=== PATIENT | female | born 1980 | race Caucasian/White ===

== ENCOUNTER 2019-11-13 02:20 | Inpatient (IN) | payer SELFPAY ==
[2019-11-13] VITALS (7 sets, daily range): BP systolic 136–146; BP diastolic 89–100
[~2019-11-13] VITALS: Ht 160 cm; Wt 106.1 kg
--- NOTE | 2019-11-13 02:00 | NUR ---
Admit to 434, direct admit from [place]. C/o abd pain with N/V. A&O, ambulates w/o difficulty. Has non-prod cough, afebrile.
[~2019-11-13 02:20] MED LIST: ACET325T9 PO; CIME200T8 PO; MELO7.5T29 PO; inhaler
[2019-11-13] MEDS: IV NORMAL SALINE 1000ML BAG 1,000 ML IV SCH ×3 (03:19→23:18)
[2019-11-13] MEDS: ONDANSETRON PF 4 MG/2 ML VIAL. IVP PRN ×3 (03:20→18:09)
[2019-11-13] MEDS: MORPHINE SULFATE 4 MG/ML VIAL. IV PRN ×6 (03:20→23:18)
--- NOTE | 2019-11-13 07:00 | NUR ---
awake complaining of nausea and emesis; bile. up to the bathroom and voided 300 cc yellow urine. steady gait. she is painful in the upper quadrants and is tender to touch. it is too early for pain medication or nausea medication
--- NOTE | 2019-11-13 08:51 | PDOC2 ---
CONSULT Date of Consult Date of Consult DATE: 11/13/19 TIME: 08:45 Reason for Consult Reason for Consult: cholecystitis Referring Physician Referring Physician: Dr Wells Identification/Chief Complaint Chief Complaint abdominal pain Source Source: Chart review, Patient History of Present Illness Reason for Visit: Acute onset of upper abdominal pain started yesterday. Associated nausea and emesis. No similar symptoms in past. No constipation or diarrhea Past Medical History Cardiovascular: No pertinent hx Past Surgical History Past Surgical History: Other (myomectomy ) Family History Family History: Hypertension Social History 1 pack per day ALCOHOL: rare Drugs: Marijuana Lives: with Family Current Medications Current Medications Current Medications Morphine Sulfate (Morphine Sulfate) 4 mg PRN Q4HRS PRN IV PAIN Last administered on 11/13/19at 07:40; Start 11/13/19 at 03:00 Ondansetron HCl (Zofran) 4 mg PRN Q6HRS PRN IVP NAUSEA/VOMITING Last administered on 11/13/19at 08:43; Start 11/13/19 at 03:00 Sodium Chloride 1,000 ml @ 100 mls/hr Q10H IV Last administered on 11/13/19at 03:19; Start 11/13/19 at 03:00 Active Scripts Active Reported [inhaler] Tylenol (Acetaminophen) 325 Mg Tablet 1-2 Tab PO QID Acid Icu Specialist (Cimetidine) 200 Mg Tablet 200 Mg PO Meloxicam 7.5 Mg Tablet 7.5 Mg PO DAILY Allergies Allergies: Coded Allergies: No Known Drug Allergies (Unverified , 07/31/14) ROS General: No: Chills, Other (fevers ) PSYCHOLOGICAL ROS: No: Anxiety, Depression Eyes: No Blurry vision, No Double vision HEENT: No: Heacaches, Sore Throat Hematological and Lymphatic: No: Bleeding Problems, Blood Clots Respiratory: YES: Cough; No: Shortness of breath Cardiovascular: No Chest Pain, No Palpitations Gastrointestinal: Yes Other (see hpi) Genitourinary: No Dysuria, No Hematuria Musculoskeletal: No Joint Pain, No Muscle Pain Neurological: No Impaired Coord/balance, No Numbness/Tingling Skin: No Pruritus, No Rash Physical Exam General: Alert, Cooperative, Other (in pain ) HEENT: Atraumatic, PERRLA Lungs: Clear to auscultation, Normal air movement Heart: Regular rate, Normal S1, Normal S2 Abdomen: Soft, Other (TTP upper abdomen ) Extremities: No clubbing, No cyanosis Skin: No rashes, No breakdown Neuro: Normal gait, Normal speech Psych/Mental Status: Mental status NL, Mood NL MUSCULOSKELETAL: No deformity, No swelling Vitals VITALS Vital Signs Date Time Temp Pulse Resp B/P (MAP) Pulse Ox O2 Delivery O2 Flow Rate FiO2 11/13/19 07:40 18 Room Air 11/13/19 07:15 98.2 103 142/89 (106) 97 98.2 Assessment/Plan Assessment/Plan cholecystitis-added abx noted adnexal masses-required myomectomy in 2014 will need tristin, await BANK OPERATIONS OFFICER if adnexal masses require any intervention ADRY KOHLER BLOW PIT OPERATOR Nov 13, 2019 08:51
--- NOTE | 2019-11-13 10:06 | NUR ---
SW following. Discussed with RN, room air, NPO, COVID pending for possible surgery. SW will continue to follow.
[2019-11-13] MEDS: PIPERACILLIN/TAZOBACTAM 3.375 GM in IV NORMAL SALINE 50ML 50 ML IV SCH ×2 (10:17→18:07)
--- NOTE | 2019-11-13 10:25 | PDOC2 ---
CONSULT Date of Consult Date of Consult DATE: 11/13/19 TIME: 10:24 Reason for Consult Reason for Consult: Pelvic mass, abd pain History of Present Illness Reason for Visit: The pt is a 39y G0 who presented to [facility] with N/V, and abd pain. She states that the pain began suddenly on Sunday. She presented to the ER where a CT was performed revealin. Cholelithiasis. 2. Bilateral adnexal masses are seen, right greater than left. The right adnexal mass measures 11 cm in greatest diameter. On the previous examination the patient had a 16.6 cm left adnexal mass. It is unclear on today's study whether these adnexal masses have decreased in size due to treatment or are new. Clinical correlation is recommended. They reported that the pt had bilateral adnexal masses (11 cm on the right and 6.4 cm on the left). The pt was transferred to [place] for eval and management. In 2014 (07/30/14) the pt presented to [facility] ER with abd pain and was found to have a 19 x 20 x 11 cm solid mass. The pt was transferred to [place] and underwent surgery. The surgery revealed that the mass was pedunculated fibroids (largest 25 cm). The pt underwent an open myomectomy. Due to insurance issues the pt has never followed up. The pt was informed that the masses this time were lickly fibroids again, but additional imaging may help to confirm this. Briefly discussed tx options with the pt regarding fibroids. Expectant vs myomectomy vs hysterectomy. The pt has no children and has no desire for any in the future. If she did need to have surgery for the fibroids she would prefer just the myomectomy. The pt has no PCP. She used to see Dr. Hatch. He was the physician managing her asthma. But after she lost her insurance she has not seen anyone. PMH: Gastritis, bronchial asthma PSH: Ex Lap at 15yo for abd pain (no etiology found), Open myomectomy Meds: Albuterol inhaler, Ompreazole All: Tramadol OBHx: G0 Scarfer: LMP ~2wks Never contraception 13yo / regular SH: rare tob, rare EtOH FH: aunt Breast CA; great uncle colon CA; uncle x 2, aunt and GM DM; uncle nonhodgkins lymphoma Past Medical History Cardiovascular: No pertinent hx Past Surgical History Past Surgical History: Other (myomectomy ) Family History Family History: Hypertension Social History 1 pack per day ALCOHOL: rare Drugs: Marijuana Lives: with Family Current Medications Current Medications Current Medications Morphine Sulfate (Morphine Sulfate) 4 mg PRN Q4HRS PRN IV PAIN Last administered on 11/13/19at 10:17; Start 11/13/19 at 03:00 Ondansetron HCl (Zofran) 4 mg PRN Q6HRS PRN IVP NAUSEA/VOMITING Last administered on 11/13/19at 08:43; Start 11/13/19 at 03:00 Sodium Chloride 1,000 ml @ 100 mls/hr Q10H IV Last administered on 11/13/19at 03:19; Start 11/13/19 at 03:00 Piperacillin Sod/ Tazobactam Sod 3.375 gm/Sodium Chloride 50 ml @ 100 mls/hr Q6HRS IV Last administered on 11/13/19at 10:17; Start 11/13/19 at 09:30 Active Scripts Active Reported [inhaler] Tylenol (Acetaminophen) 325 Mg Tablet 1-2 Tab PO QID Acid Tower Climber (Cimetidine) 200 Mg Tablet 200 Mg PO Meloxicam 7.5 Mg Tablet 7.5 Mg PO DAILY Allergies Allergies: Coded Allergies: No Known Drug Allergies (Unverified , 07/31/14) Physical Exam General: Alert, Oriented X3, Cooperative, No acute distress HEENT: PERRLA, Mucous membr. moist/pink Lungs: Clear to auscultation, Normal air movement Heart: Regular rate, Normal S1, Normal S2, No murmurs Abdomen: Soft, Other (diffusely tender) Extremities: No clubbing, No cyanosis, No edema, Normal pulses, No tenderness/swelling Skin: No rashes, No breakdown Neuro: Normal gait, Normal speech, Normal tone, Sensation intact, Reflexes 2+ Psych/Mental Status: Mental status NL, Mood NL Vitals VITALS Vital Signs Date Time Temp Pulse Resp B/P (MAP) Pulse Ox O2 Delivery O2 Flow Rate FiO2 11/13/19 10:17 20 Room Air 11/13/19 07:15 98.2 103 142/89 (106) 97 98.2 Labs Labs Laboratory Tests Test 11/13/19 09:50 SARS-CoV-2 Antigen (Rapid) Negative (NEGATIVE) Laboratory Tests Test 11/13/19 09:50 SARS-CoV-2 Antigen (Rapid) Negative (NEGATIVE) Assessment/Plan Assessment/Plan Assessment: 39y G0 wit N/V/abd pain likely from Cholelithiasis Recommendations: 1.) Pelvic masses bilateral adnexal masses measuring 11 cm (on right) and 6.4 cm (on the left), h/o myomectomy in 2015. Masses are likely fibroids like in the past. Would recommend obtaining u/s to help delineate what the masses are. Would also obtain CA 125. Since this is likely fibroids, this w/u should not delay cholecystectomy if indicated or determine method of how it is performed (laparoscopically or open). Due to the size of the masses a myomectomy may need to be open. Fibroids have been asx for some time so not necessary that they be taken out, but can be done at the same time as Vikki. 2.) Cholelithiasis on imaging, WBC 13.1, managed per surgery 3.) Contraception none 4.) H/o open myomectomy 5.) Gastritis long standing hx 6.) Asthma 7.) Will cont follow, please inform if and when pt is placed on schedule of AMENA Griggs MD Nov 13, 2019 10:25
--- NOTE | 2019-11-13 10:30 | NUR ---
rapid co-vid family at bedside d completed. Nely from surgery services has been here.
--- NOTE | 2019-11-13 12:16 | PDOC2 ---
GI CONSULT Date of Service: DATE: 11/13/19 TIME: 12:08 Reason For Consult: impacted gallstone HPI: HPI: 39 y/o female sent from [facility]. Acute onset of "knot" epigastric pain w/ vomiting yesterday while at work. She is a cook at [employer]. No similar pain in the past. H/o "gastritis" diagnosed by PCP - takes omeprazole. No dysphagia, hematemesis, diarrhea, constipation, hematochezia, melena, or weight loss. EGD and colonoscopy in her teenage years - recalls no significant findings. No GB, liver, pancreas, or PUD history. Daily NSAID and Tylenol. Normal LFTs and lipase and [facility]. CT w/ cholelithiasis and bilateral adnexal masses. PMH: PMH: open myomectomy FH: Family History: Cancer (great uncle - colon, other relatives - prostate, NHL, breast) Social History: Smoke: <1 pack per day ALCOHOL: occassional Drugs: Marijuana ROS: GEN: Denies fevers, chills, sweats HEENT: Denies blurred vision, sore throat CV: Denies chest pain RESP: Denies shortness of air, cough GI: Per HPI : Denies hematuria, dysuria ENDO: Denies weight changes NEURO: Denies confusion, dizziness MSK: Denies weakness, joint pain/swelling SKIN: Denies jaundice, pruritus Vitals: Vitals: Vital Signs Date Time Temp Pulse Resp B/P (MAP) Pulse Ox O2 Delivery O2 Flow Rate FiO2 11/13/19 11:05 98.3 102 22 146/100 (115) 98 Room Air 98.3 Labs: Labs: Laboratory Tests Test 11/13/19 09:50 SARS-CoV-2 Antigen (Rapid) Negative (NEGATIVE) Allergies: Coded Allergies: No Known Drug Allergies (Unverified , 07/31/14) Medications: Current Medications Medications (Trade) Dose Ordered Sig/Leonel Route PRN Reason Start Time Stop Time Status Last Admin Dose Admin Morphine Sulfate (Morphine Sulfate) 4 mg PRN Q4HRS PRN IV PAIN 11/13/19 03:00 11/13/19 10:17 Ondansetron HCl (Zofran) 4 mg PRN Q6HRS PRN IVP NAUSEA/VOMITING 11/13/19 03:00 11/13/19 08:43 Sodium Chloride 1,000 ml @ 100 mls/hr Q10H IV 11/13/19 03:00 11/13/19 03:19 Piperacillin Sod/ Tazobactam Sod 3.375 gm/Sodium Chloride 50 ml @ 100 mls/hr Q6HRS IV 11/13/19 09:30 11/13/19 10:17 PE: GEN: uncomfortable HEENT: Atraumatic, PERRL LUNGS: CTAB HEART: mildly tachycardic ABD: quiet, quiet tender to light touch upper abdomen EXTREMITY: No edema SKIN: No rashes, no jaundice NEURO/PSYCH: A & O 3 A/P: A/P: Epigastric pain, vomiting Cholelithiasis, adnexal masses GERD - on PPI CRC screen - average risk NSAID use Rapid COVID negative -- Continue per surgery and VP CARDIOVASCULAR. Nurse ask for Compazine - gave ok. Would resume acid-tar pot man as well. ZAIRA MCKEON Nov 13, 2019 12:16
[2019-11-13] MEDS: PROCHLORPERAZINE 10 MG/2 ML VIAL. IV PRN ×2 (12:45→20:39)
[2019-11-13] MEDS: PANTOPRAZOLE IV PUSH 40 MG VIAL. IVP SCH (13:38)
--- NOTE | 2019-11-13 16:11 | PDOC1 ---
History and Physical Date of Admission Date of Admission DATE: 11/13/19 TIME: 16:01 Identification/Chief Complaint Chief Complaint Abdominal pain Source Source: Patient History of Present Illness History of Present Illness Patient is a 39-year-old female with past medical history of uterine fibroids, who presents to the ED with complaint of cramping upper abdominal pain that began suddenly on the day of admission. Patient reports 10/10 pain, with associated nausea and vomiting. She denies any alleviating factors. After administration of pain medication patient currently rated with her pain at 6/10. She denies any fever, shortness of breath, diarrhea. Past Medical History Cardiovascular: No pertinent hx Pulmonary: Asthma Endocrine: Other (Uterine fibroids) Past Surgical History Past Surgical History: Other (myomectomy ) Family History Family History: Diabetes, Hypertension Social History Smoke: <1 pack per day ALCOHOL: occassional Drugs: Marijuana Current Medications Current Medications Current Medications Morphine Sulfate (Morphine Sulfate) 4 mg PRN Q4HRS PRN IV PAIN Last administered on 11/13/19at 14:34; Start 11/13/19 at 03:00 Ondansetron HCl (Zofran) 4 mg PRN Q6HRS PRN IVP NAUSEA/VOMITING Last administered on 11/13/19at 08:43; Start 11/13/19 at 03:00 Sodium Chloride 1,000 ml @ 100 mls/hr Q10H IV Last administered on 11/13/19at 12:52; Start 11/13/19 at 03:00 Piperacillin Sod/ Tazobactam Sod 3.375 gm/Sodium Chloride 50 ml @ 100 mls/hr Q6HRS IV Last administered on 11/13/19at 10:17; Start 11/13/19 at 09:30 Prochlorperazine Edisylate (Compazine) 10 mg PRN Q6HRS PRN IV NAUSEA/VOMITING- 2ND CHOICE Last administered on 11/13/19 12:45; Start 11/13/19 at 12:30 Pantoprazole Sodium (PROTONIX VIAL for IV PUSH) 40 mg DAILYAC IVP Last administered on 11/13/19at 13:38; Start 11/13/19 at 13:30 Active Scripts Active Reported [inhaler] Tylenol (Acetaminophen) 325 Mg Tablet 1-2 Tab PO QID Acid Netbackup Engineer (Cimetidine) 200 Mg Tablet 200 Mg PO Meloxicam 7.5 Mg Tablet 7.5 Mg PO DAILY Allergies Allergies: Coded Allergies: No Known Drug Allergies (Unverified , 07/31/14) ROS General: No: Chills, Night Sweats, Fatigue, Malaise, Appetite, Other PSYCHOLOGICAL ROS: No: Anxiety, Behavioral Disorder, Concentration difficultie, Decreased libido, Depression, Disorientation, Hallucinations, Hostility, Irritablity, Memory difficulties, Mood Swings, Obsessive thoughts, Physical abuse, Sexual abuse, Sleep disturbances, Suicidal ideation, Other Eyes: No Blurry vision, No Decreased vision, No Double vision, No Dry eyes, No Excessive tearing, No Eye Pain, No Itchy Eyes, No Loss of vision, No Photophobia , No Scotomata, No Uses contacts, No Uses glasses, No Other HEENT: No: Heacaches, Visual Changes, Hearing change, Nasal congestion, Nasal discharge, Oral lesions, Sinus pain, Sore Throat, Epistaxis, Sneezing, Snoring, Tinnitus, Vertigo, Vocal changes, Other ALLERGY AND IMMUNOLOGY: No: Hives, Insect Bite Sensitivity, Itchy/Watery Eyes, Nasal Congestion, Post Nasal Drip, Seasonal Allergies, Other Hematological and Lymphatic: No: Bleeding Problems, Blood Clots, Blood Transfusions, Brusing, Night Sweats, Pallor, Swollen Lymph Nodes, Other ENDOCRINE: No: Breast Changes, Galactorrhea, Hair Pattern Changes, Hot Flashes, Malaise/lethargy, Mood Swings, Palpitations, Polydipsia/polyuria, Skin Changes, Temperature Intolerance, Unexpected Weight Changes, Other Respiratory: No: Cough, Hemoptysis, Orthopnea, Pleuritic Pain, Shortness of breath, SOB with excertion, Sputum Changes, Stridor, Tachypnea, Wheezing, Other Cardiovascular: No Chest Pain, No Palpitations, No Orthopnea, No Paroxysmal Noc. Dyspnea, No Edema, No Lt Headedness, No Other Gastrointestinal: Yes Abdominal Pain; No Nausea, No Vomiting Genitourinary: No Dysuria, No Frequency, No Incontinence, No Hematuria, No Retention, No Discharge, No Urgency, No Pain, No Flank Pain, No Other, No , No , No , No , No , No , No Musculoskeletal: No Gait Disturbance, No Joint Pain, No Joint Stiffness, No Joint Swelling, No Muscle Pain, No Muscular Weakness, No Pain In:, No Swelling In:, No Other Neurological: No Behavorial Changes, No Bowel/Bladder ControlChng, No Confusion, No Dizziness, No Gait Disturbance, No Headaches, No Impaired Coord/balance, No Memory Loss, No Numbness/Tingling, No Seizures, No Speech Problems, No Tremors, No Visual Changes, No Weakness, No Other Skin: No Dry Skin, No Eczema, No Hair Changes, No Lumps, No Mole Changes, No Mottling, No Nail Changes, No Pruritus, No Rash, No Skin Lesion Changes, No Other, No Acne Physical Exam General: Alert, Oriented X3, Cooperative, No acute distress HEENT: PERRLA Lungs: Clear to auscultation, Normal air movement Heart: RRR, no murmurs Cardiovascular: S1, S2 Abdomen: Other (Epigastric and right upper quadrant tenderness, palpable uterine fibroids) Extremities: No clubbing, No cyanosis, No edema, Normal pulses, No tenderness/swelling Skin: No rashes, No breakdown, No significant lesion Neuro: Normal gait, Normal speech, Strength at 5/5 X4 ext, Normal tone, Sensation intact, Cranial nerves 3-12 NL, Reflexes 2+ Psych/Mental Status: Mental status NL, Mood NL Vitals Vitals Vital Signs Date Time Temp Pulse Resp B/P (MAP) Pulse Ox O2 Delivery O2 Flow Rate FiO2 11/13/19 15:03 98.6 89 20 139/91 (107) 98 Room Air 98.6 Labs Labs Laboratory Tests Test 11/13/19 09:50 SARS-CoV-2 Antigen (Rapid) Negative (NEGATIVE) Laboratory Tests Test 11/13/19 09:50 SARS-CoV-2 Antigen (Rapid) Negative (NEGATIVE) VTE Prophylaxis Ordered VTE Prophylaxis Devices: No VTE Pharmacological Prophylaxi: No Assessment/Plan Assessment/Plan 1) cholecystitis 2) uterine fibroids Patient is a transfer from [facility], where outside CT showed cholelithiasis, and incidental findings of bilateral adnexal masses, right great er than left. Consults were placed to general surgery, GI, PLAYERS CLUB REPRESENTATIVE. Patient to have cholecystectomy likely tomorrow, and uterine fibroid management per PLAYERS CLUB REPRESENTATIVE. VTE prophylaxis. Full code. Justicifation of Admission Dx: Justifications for Admission: Justification of Admission Dx: Yes Comments: Intractable pain WALESKA ATKINS MD Nov 13, 2019 16:11
[2019-11-14] VITALS (9 sets, daily range): BP systolic 119–150; BP diastolic 76–92
[2019-11-14] MEDS: ONDANSETRON PF 4 MG/2 ML VIAL. IVP PRN ×2 (00:09→09:40)
[2019-11-14] MEDS: PIPERACILLIN/TAZOBACTAM 3.375 GM in IV NORMAL SALINE 50ML 50 ML IV SCH ×4 (00:12→19:16)
[2019-11-14] MEDS: MORPHINE SULFATE 4 MG/ML VIAL. IV PRN ×3 (05:04→13:50)
[2019-11-14] MEDS: PROCHLORPERAZINE 10 MG/2 ML VIAL. IV PRN ×2 (05:07→11:55)
[2019-11-14] MEDS: PANTOPRAZOLE IV PUSH 40 MG VIAL. IVP SCH (08:27)
--- NOTE | 2019-11-14 09:00 | NUR ---
resting in bed. remains NPO. has not had any emesis since yesterday but she has been given compazine and Zofran every 6 hrs. have not heard about surgery yet. family at bedside
[2019-11-14] MEDS: IV NORMAL SALINE 1000ML BAG 1,000 ML IV SCH ×2 (09:40→21:30)
--- NOTE | 2019-11-14 09:51 | NUR ---
SW following. Discussed with RN, pt from home, room air, NPO, COVID-19 negative. Possible surgery. Med Assist following for self pay status. SW will continue to follow.
--- NOTE | 2019-11-14 10:06 | PDOC ---
Date of Service: DATE: 11/14/19 TIME: 10:04 Subjective: Subjective: No vomiting - has been NPO. Pain is a little better. Objective: Vital Signs: Vital Signs Date Time Temp Pulse Resp B/P (MAP) Pulse Ox O2 Delivery O2 Flow Rate FiO2 11/14/19 09:40 20 Room Air 11/14/19 07:15 98.5 94 138/84 (102) 93 98.5 Imaging: Pelv US pending PE: GEN: NAD LUNGS: CTAB HEART: RRR ABD: quiet, less tender epigastrium NEURO/PSYCH: A & O 3 A/P: Cholelithiasis, adnexal masses GERD - on PPI COVID negative -- Continue per surgery and PROFESSIONAL MODEL. LFTs normal @ [facility] - labs pending this morning. Justicifation of Admission Dx: Justifications for Admission: Justification of Admission Dx: Yes ZAIRA MCKEON Nov 14, 2019 10:06
[2019-11-14 10:21] LABS: ALBUMIN 2.9 g/dL (3.4-5.0); DIRECT BILIRUBIN 0.3 mg/dL (0.0-0.2); TOTAL BILIRUBIN 0.6 mg/dL (0.2-1.0); TOTAL PROTEIN 6.5 g/dL (6.4-8.2)
--- NOTE | 2019-11-14 11:19 | PDOC ---
SPIRAL RUNNER PROGRESS NOTE Date of Service: DATE: 11/14/19 TIME: 11:18 Subjective: NPO last night. Still in pain Objective: Vital Signs: Vital Signs Date Time Temp Pulse Resp B/P (MAP) Pulse Ox O2 Delivery O2 Flow Rate FiO2 11/13/19 07:15 98.2 103 20 142/89 (106) 97 Room Air 98.2 Vital Signs Date Time Temp Pulse Resp B/P (MAP) Pulse Ox O2 Delivery O2 Flow Rate FiO2 11/14/19 09:40 20 Room Air 11/14/19 07:15 98.5 94 138/84 (102) 93 98.5 Labs: Laboratory Tests Test 11/14/19 09:20 Total Bilirubin 0.6 mg/dL (0.2-1.0) Direct Bilirubin 0.3 mg/dL (0.0-0.2) H Aspartate Amino Transferase (AST) 20 U/L (15-37) Alanine Aminotransferase (ALT) 30 U/L (14-59) Alkaline Phosphatase 67 U/L (46-116) Total Protein 6.5 g/dL (6.4-8.2) Albumin 2.9 g/dL (3.4-5.0) L Physical Exam: GENERAL: No apparent distress. Alert and oriented. HEENT: Head normocephalic, atraumatic. NECK: Supple LUNGS: Clear to auscultation. HEART: RRR, S1, S2 present, pulses intact ABDOMEN: Soft, positive bowel sounds. EXTREMITIES: No cyanosis or edema. NEUROLOGIC: Normal speech, normal tone PSYCHIATRIC: Normal affect, normal mood. SKIN: No ulceration. Assessment & Plan: A/P 39y G0 wit N/V/abd pain likely from Cholelithiasis 1.) Pelvic masses bilateral adnexal masses measuring 11 cm (on right) and 6.4 cm (on the left), h/o myomectomy in 2014. Awaiting u/s read and CA 125 results. Pt may go to the OR this afternoon. If not significant adhesions, pt would like fibroids removed even if the procedure would need to convert to open. 2.) Cholelithiasis possible to OR this afternoon 3.) Contraception none 4.) H/o open myomectomy 5.) Gastritis long standing hx 6.) Asthma 7.) Will cont follow, please inform if and when pt is placed on schedule of AMENA Griggs MD Nov 14, 2019 11:19
--- NOTE | 2019-11-14 12:33 | PDOC ---
EDITAADRY Debra INSTALLER HELPER 11/14/19 1233: SURGICAL PROGRESS NOTE DATE: 11/14/19 TIME: 12:32 Subjective still with upper abdominal pain no emesis Vital Signs Vital Signs Date Time Temp Pulse Resp B/P (MAP) Pulse Ox O2 Delivery O2 Flow Rate FiO2 11/14/19 11:15 97.9 109 18 143/87 (105) 96 Room Air 97.9 I&O Intake and Output 11/14/19 06:59 Intake Total 1650 ml Balance 1650 ml Intake Oral 0 ml IV Total 1650 ml # Voids 3 General: Alert, Oriented X3, Cooperative Abdomen: Soft, Other (ND, ttp upper abdomen ) Labs Laboratory Tests Test 11/13/19 09:00 11/13/19 09:50 11/14/19 09:20 Coronavirus (PCR) Not detected (Not Detected) SARS-CoV-2 Antigen (Rapid) Negative (NEGATIVE) Total Bilirubin 0.6 mg/dL (0.2-1.0) Direct Bilirubin 0.3 mg/dL (0.0-0.2) Aspartate Amino Transf (AST/SGOT) 20 U/L (15-37) Alanine Aminotransferase (ALT/SGPT) 30 U/L (14-59) Alkaline Phosphatase 67 U/L (46-116) Total Protein 6.5 g/dL (6.4-8.2) Albumin 2.9 g/dL (3.4-5.0) Laboratory Tests Test 11/14/19 09:20 Total Bilirubin 0.6 mg/dL (0.2-1.0) Direct Bilirubin 0.3 mg/dL (0.0-0.2) Aspartate Amino Transf (AST/SGOT) 20 U/L (15-37) Alanine Aminotransferase (ALT/SGPT) 30 U/L (14-59) Alkaline Phosphatase 67 U/L (46-116) Total Protein 6.5 g/dL (6.4-8.2) Albumin 2.9 g/dL (3.4-5.0) Problem List plan for lap tristin today will let Dr Maria know of scheduling Justicifation of Admission Dx: Justifications for Admission: Justification of Admission Dx: Yes IVAN RENE MD 11/14/19 1912: SURGICAL PROGRESS NOTE Assessment/Plan Pt seen and examined in preop Agree with Ms. Kohler's note Pt with gallstone in neck of gallbladder Some improvement since admission. TO OR for laparoscopic versus open cholecystectomy with cholangiogram R/R/B/A d/w pt and pt's supportive family. Risks, including, but not limited to: bleeding, infection, damage to surrounding structures, risk of anesthesia, risk of open. They appear to understand, their questions are answered and they elect to proceed. ADRY KOHLER APRN Nov 14, 2019 12:33 IVAN RENE MD Nov 14, 2019 19:12
--- NOTE | 2019-11-14 14:00 | NUR ---
consents for surgery hiv, blood and anesthesia obtained. urine for sent to lab. family remains at bedside. she is agreeable to surgery. message left with Dr. Maria about her going to surgery.
--- NOTE | 2019-11-14 14:13 | RAD ---
EXAM: Pelvic ultrasound HISTORY: Adnexal mass. Prior resection of large uterine fibroids. COMPARISON: 11/12/2019 CT, 07/30/2014. FINDINGS: Sonographic evaluation of the pelvis was performed transabdominally. The uterus is anteverted and measures 8.2 x 7.3 x 4.0 cm. The endometrial stripe measures 4 mm. A myometrial fibroid along the fundus measures 3.0 x 2.3 cm. There is no significant free fluid. The right ovary measures a cystic mass in the right adnexa likely arises from the right ovary on comparison with recent CT. It measures 11.2 x 11.5 x 9.1 cm. No internal perfusion or solid component is identified. A left adnexal mass is measured as a uterine fibroid on this examination, however, it appears separate from the uterus on recent CT. It measures 4.5 x 4.5 cm. The left ovary is not otherwise visualized and an ovarian origin is favored. No abnormal Doppler flow is seen. IMPRESSION: 1. 11.5 cm purely cystic right adnexal mass, likely of ovarian origin. Follow-up to resolution is recommended to exclude a lesion of low malignant potential. 2. A 4.5 cm solid lesion in the left adnexa is likely of ovarian origin. Considerations include a densely hemorrhagic cyst, versus a soft tissue mass. MRI with and without contrast could further characterize versus ongoing follow-up. Gynecologic consultation is suggested. Electronically signed by: Patrick Nixon MD (11/14/2019 2:10 PM) [id number]
[2019-11-14 14:42] LABS: U PREG PATIENT NEGATIVE (NEG)
[2019-11-14] MEDS ORDERED: BISACODYL 10 MG SUPP.RECT. ONE (16:09)
[2019-11-14] MEDS ORDERED: IOHEXOL 300 MG/ML 50 ML VIAL. ONE (16:09)
[2019-11-14] MEDS ORDERED: BUPIVACAINE-EPI 0.5%-1:200000 MPF 30 ML VIAL. ONE (16:09)
[2019-11-14] MEDS ORDERED: SURGICEL HEMOSTAT 4X8 EACH. ONE (16:31)
--- NOTE | 2019-11-14 16:51 | NUR ---
transferred to surgery
[2019-11-14] MEDS ORDERED: HEPARIN 1,000 UNIT in IV NORMAL SALINE 1,000 ML for SURG PERIOP IRR ONE (17:00)
[2019-11-14] MEDS ORDERED: IV RINGERS,LACTATED 1000ML 1,000 ML IV SCH (17:12)
[2019-11-14] MEDS ORDERED: MORPHINE SULFATE 2 MG/ML VIAL. IV PRN (17:15)
[2019-11-14] MEDS ORDERED: PROCHLORPERAZINE 10 MG/2 ML VIAL. IV PRN (17:15)
[2019-11-14] MEDS ORDERED: LIDOCAINE 1% PF 2 ML VIAL. ID PRN (17:15)
[2019-11-14] MEDS ORDERED: HYDROmorphone 2 MG/ML VIAL IV PRN (17:15)
[2019-11-14] MEDS ORDERED: ONDANSETRON PF 4 MG/2 ML VIAL. IV PRN (17:15)
[2019-11-14] MEDS ORDERED: fentaNYL PF VIAL 100 MCG/2 ML VIAL IV PRN (17:15)
--- NOTE | 2019-11-14 17:18 | PDOC ---
PROGRESS NOTES Date of Service: DATE: 11/14/19 TIME: 17:15 Chief Complaint Chief Complaint Abdominal pain History of Present Illness History of Present Illness Spoke with patient and family at bedside. Plan for surgery this evening. Pain well controlled. Vitals Vitals Vital Signs Date Time Temp Pulse Resp B/P (MAP) Pulse Ox O2 Delivery O2 Flow Rate FiO2 11/14/19 17:08 98.8 89 16 142/85 95 Room Air 98.8 Physical Exam General: Alert, Oriented X3, Cooperative Heart: Regular rate, Normal S1, Normal S2, No murmurs Abdomen: Soft, Other (ND, ttp upper abdomen ) Extremities: No clubbing, No cyanosis, No edema, Normal pulses, No tenderness/swelling Skin: No rashes, No breakdown, No significant lesion Labs LABS Laboratory Tests Test 11/14/19 09:20 11/14/19 14:30 Total Bilirubin 0.6 mg/dL (0.2-1.0) Direct Bilirubin 0.3 mg/dL (0.0-0.2) Aspartate Amino Transf (AST/SGOT) 20 U/L (15-37) Alanine Aminotransferase (ALT/SGPT) 30 U/L (14-59) Alkaline Phosphatase 67 U/L (46-116) Total Protein 6.5 g/dL (6.4-8.2) Albumin 2.9 g/dL (3.4-5.0) Urine Test Negative (NEG) Review of Systems Review of Systems Abdominal pain. Denies nausea, denies vomiting, denies fever. Assessment and Plan Assessmemt and Plan Problems Medical Problems: (1) Fibroid uterus Status: Acute (2) Cholecystitis Status: Acute Plan: Cholecystectomy today. Uterine fibroids managed per OB Comment Review of Relevant I have reviewed the following items vijaya (where applicable) has been applied. Labs Laboratory Tests Test 11/13/19 09:00 11/13/19 09:50 11/14/19 09:20 11/14/19 14:30 Coronavirus (PCR) Not detected (Not Detected) SARS-CoV-2 Antigen (Rapid) Negative (NEGATIVE) Total Bilirubin 0.6 mg/dL (0.2-1.0) Direct Bilirubin 0.3 mg/dL (0.0-0.2) Aspartate Amino Transf (AST/SGOT) 20 U/L (15-37) Alanine Aminotransferase (ALT/SGPT) 30 U/L (14-59) Alkaline Phosphatase 67 U/L (46-116) Total Protein 6.5 g/dL (6.4-8.2) Albumin 2.9 g/dL (3.4-5.0) Urine Test Negative (NEG) Laboratory Tests Test 11/14/19 09:20 11/14/19 14:30 Total Bilirubin 0.6 mg/dL (0.2-1.0) Direct Bilirubin 0.3 mg/dL (0.0-0.2) Aspartate Amino Transf (AST/SGOT) 20 U/L (15-37) Alanine Aminotransferase (ALT/SGPT) 30 U/L (14-59) Alkaline Phosphatase 67 U/L (46-116) Total Protein 6.5 g/dL (6.4-8.2) Albumin 2.9 g/dL (3.4-5.0) Urine Test Negative (NEG) Medications Current Medications Morphine Sulfate (Morphine Sulfate) 4 mg PRN Q4HRS PRN IV PAIN Last administered on 11/14/19 13:50; Start 11/13/19 at 03:00 Ondansetron HCl (Zofran) 4 mg PRN Q6HRS PRN IVP NAUSEA/VOMITING Last administered on 11/14/19 09:40; Start 11/13/19 at 03:00 Sodium Chloride 1,000 ml @ 100 mls/hr Q10H IV Last administered on 11/14/19 09:40; Start 11/13/19 at 03:00 Piperacillin Sod/ Tazobactam Sod 3.375 gm/Sodium Chloride 50 ml @ 100 mls/hr Q6HRS IV Last administered on 11/14/19 11:55; Start 11/13/19 at 09:30 Prochlorperazine Edisylate (Compazine) 10 mg PRN Q6HRS PRN IV NAUSEA/VOMITING- 2ND CHOICE Last administered on 11/14/19 11:55; Start 11/13/19 at 12:30 Pantoprazole Sodium (PROTONIX VIAL for IV PUSH) 40 mg DAILYAC IVP Last administered on 11/14/19 08:27; Start 11/13/19 at 13:30 Bupivacaine HCl/ Epinephrine Bitart (Sensorcain-Epi 0.5%-1:907487 Mpf) 30 ml STK-MED ONCE .ROUTE ; Start 11/14/19 at 16:09; Stop 11/14/19 at 16:09; Status DC Iohexol (Omnipaque 300 Mg/ml) 50 ml STK-MED ONCE .ROUTE ; Start 11/14/19 at 16:09; Stop 11/14/19 at 16:09; Status DC Bisacodyl (Dulcolax Supp) 10 mg STK-MED ONCE .ROUTE ; Start 11/14/19 at 16:09; Stop 11/14/19 at 16:09; Status DC Heparin Sodium (Porcine) 1000 unit/Sodium Chloride 1,001 ml @ 1,001 mls/hr 1X ONCE IRR ; Start 11/14/19 at 17:00; Stop 11/14/19 at 17:59 Cellulose (Surgicel Hemostat 4x8) 1 each STK-MED ONCE .ROUTE ; Start 11/14/19 at 16:31; Stop 11/14/19 at 16:32; Status DC Ondansetron HCl (Zofran) 4 mg PRN Q6HRS PRN IV NAUSEA/VOMITING; Start 11/14/19 at 17:15; Stop 11/15/19 at 17:14; Status UNV Fentanyl Citrate (Fentanyl 2ml Vial) 25 mcg PRN Q5MIN PRN IV MILD PAIN 1-3; Start 11/14/19 at 17:15; Stop 11/15/19 at 17:14; Status UNV Fentanyl Citrate (Fentanyl 2ml Vial) 50 mcg PRN Q5MIN PRN IV MODERATE TO SEVERE PAIN; Start 11/14/19 at 17:15; Stop 11/15/19 at 17:14; Status UNV Morphine Sulfate (Morphine Sulfate) 1 mg PRN Q10MIN PRN IV SEVERE PAIN 7-10; Start 11/14/19 at 17:15; Stop 11/15/19 at 17:14; Status UNV Ringer's Solution 1,000 ml @ 30 mls/hr Q24H IV ; Start 11/14/19 at 17:12; Stop 11/15/19 at 05:11; Status UNV Lidocaine HCl (Xylocaine-Mpf 1% 2ml Vial) 2 ml PRN 1X PRN ID PRIOR TO IV START; Start 11/14/19 at 17:15; Stop 11/15/19 at 17:14; Status UNV Hydromorphone HCl (Dilaudid) 0.5 mg PRN Q10MIN PRN IV SEV PAIN, Second choice; Start 11/14/19 at 17:15; Stop 11/15/19 at 17:14; Status UNV Prochlorperazine Edisylate (Compazine) 5 mg PACU PRN PRN IV NAUSEA, MRX1; Start 11/14/19 at 17:15; Stop 11/15/19 at 17:14; Status UNV Active Scripts Active Reported [inhaler] Tylenol (Acetaminophen) 325 Mg Tablet 1-2 Tab PO QID Acid Percussion Welding Machine Operator (Cimetidine) 200 Mg Tablet 200 Mg PO Meloxicam 7.5 Mg Tablet 7.5 Mg PO DAILY Vitals/I & O Vital Sign - Last 24 Hours 11/13/19 11/13/19 11/13/19 11/13/19 19:00 19:40 23:00 23:18 Temp 98.7 98.7 98.7 98.7 Pulse 93 103 Resp 20 B/P (MAP) 143/98 (113) 144/99 (114) Pulse Ox 95 95 95 O2 Delivery Room Air Room Air Room Air Room Air 11/13/19 11/14/19 11/14/19 11/14/19 23:48 03:00 05:04 05:34 Temp 98.6 98.6 Pulse 102 Resp 20 18 B/P (MAP) 150/92 (111) Pulse Ox 95 97 O2 Delivery Room Air Room Air Room Air Room Air 11/14/19 11/14/19 11/14/19 11/14/19 07:15 08:00 09:40 11:15 Temp 98.5 97.9 98.5 97.9 Pulse 94 109 Resp 16 20 18 B/P (MAP) 138/84 (102) 143/87 (105) Pulse Ox 93 96 O2 Delivery Room Air Room Air Room Air Room Air 11/14/19 11/14/19 11/14/19 13:50 15:15 17:08 Temp 99.3 98.8 99.3 98.8 Pulse 98 89 Resp 16 16 B/P (MAP) 129/77 (94) 142/85 Pulse Ox 95 95 O2 Delivery Room Air Room Air Intake and Output 11/13/19 11/13/19 11/14/19 15:00 23:00 07:00 Intake Total 1650 ml Balance 1650 ml Justicifation of Admission Dx: Justifications for Admission: Justification of Admission Dx: Yes WALESKA ATKINS MD Nov 14, 2019 17:17
[2019-11-14] MEDS ORDERED: fentaNYL PF VIAL 100 MCG/2 ML VIAL ONE ×4 (18:36→21:46)
[2019-11-14] MEDS ORDERED: ROCURONIUM 100 MG/10 ML VIAL. ONE (18:36)
[2019-11-14] MEDS ORDERED: DEXAMETHASONE SOD PHOS 4 MG/ML VIAL ONE (18:36)
[2019-11-14] MEDS ORDERED: PROPOFOL 10 MG/ML (20ML) VIAL. IV ONE (18:36)
[2019-11-14] MEDS ORDERED: ONDANSETRON PF 4 MG/2 ML VIAL. ONE (18:36)
[2019-11-14] MEDS ORDERED: LIDOCAINE 2% PF 5 ML VIAL. ONE (18:36)
[2019-11-14] MEDS ORDERED: MIDAZOLAM HCL/PF 2 MG/2 ML VIAL. ONE (18:37)
[2019-11-14] MEDS ORDERED: SUCCINYLCHOLINE 200 MG/10 ML VIAL. ONE (18:45)
[2019-11-14] MEDS ORDERED: KETOROLAC 30 MG/ML VIAL. ONE (20:23)
[2019-11-14] MEDS ORDERED: GLYCOPYRROLATE 1 MG/5 ML VIAL. ONE (20:24)
[2019-11-14] MEDS ORDERED: NEOSTIGMINE METHYLSULFATE 5 MG/5 ML SYRINGE. ONE (20:24)
--- NOTE | 2019-11-14 20:24 | PDOC4 ---
OPERATIVE NOTE: Preop Dx: Bilateral ovarian cysts Postop Dx: same Procedure: L/S RSO Surgeon: Arlette Hahn Assist: Laina Anesthesia: GETA EBL:100cc for RSO Findings: 11 cm right ovarian cyst, benign in appearance, small left ovarian cyst (appearance of function cyst) Specimen: right tube and ovary Complications: None AMENA HAHN MD Nov 14, 2019 20:24
[2019-11-14] MEDS ORDERED: ESMOLOL 100 MG/10 ML VIAL. IVP ONE (20:40)
[2019-11-14] MEDS ORDERED: SEVOFLURANE 61 TO 120 MINUTES. IH ONE (21:13)
--- NOTE | 2019-11-14 21:25 | PDOC4 ---
OPERATIVE NOTE Date: Date: Nov 14, 2019 Pre-Op Diagnosis: Calculous cholecystitis Post-Op Diagnosis: same Procedure Performed: laparoscopic cholecystectomy with cholangiogram Surgeon: Kory Rene Anesthesia Type: GETA plus local Blood Loss: 100 Specimans Obtained: gallbladder Findings: severe cholecystitis, white bile c/w cystic duct obstruction, normal cholangiogram, morbid obesity Complications: none Operative Note: After obtaining informed consent, patient was taken to OR, induced under GETA and prepped in the usual fashion. 5 mm ports placed umbilical and RUQ, 12 port placed epigastric, all under laparoscopic guidance. Dr. Maria attended and performed successful right oophrorectomy. Subsequently, attention was turned to gallbladder. Abdominal cavity was explored and otherwise without pathology. Gallbladder was severely inflamed. Gallbladder taken down with cautery in dome down fashion. Cystic artery ligated with ligasure. Cholangiogram was obtained via cystic duct and was normal. Cystic duct was controlled with hemolok and clips. Gallbladder was placed in bag, delivered and sent to pathology for evaluation. Epigastric incision required extensive dilation to extract. Copious irrigation. No evidence of bleeding or other pathology at time of closure. 19 CEDRIC drain placed in gallbladder fossa as well as surgicel. Drain secured with 3 0 nylon. Ports removed without bleeding. Fascia repaired with 0 vicryl. Skin repaired with 4 0 monocryl. Dressing placed Patient tolerated procedure well and sent to PACU in stable condition. All counts correct. Wound class is 3. IVAN RENE MD Nov 14, 2019 21:25
[2019-11-14] MEDS ORDERED: NALOXONE 0.4 MG/ML VIAL. IV PRN (21:30)
[2019-11-14] MEDS ORDERED: DEXTROSE 50% 25 GM / 50ML DISP.SYRIN. IV PRN (21:30)
[2019-11-14] MEDS ORDERED: ONDANSETRON PF 4 MG/2 ML VIAL. IVP PRN (21:30)
[2019-11-14] MEDS ORDERED: 0.9 % SODIUM CHLORIDE 10 ML DISP.SYRIN. IV PRN (21:30)
[2019-11-14] MEDS: fentaNYL PF VIAL 100 MCG/2 ML VIAL IV PRN ×2 (22:00→22:11)
--- NOTE | 2019-11-14 22:24 | OP ---
DATE OF SURGERY: 11/14/2019 PREOPERATIVE DIAGNOSIS: Bilateral ovarian cysts. POSTOPERATIVE DIAGNOSIS: Bilateral ovarian cysts. PROCEDURE: Laparoscopic RSO. SURGEON: Abdoulaye Hahn MD LAB DIRECTOR: Dr. Marina. ANESTHESIA: General endotracheal intubation. ESTIMATED BLOOD LOSS: 100 mL for RSO. FINDINGS: A 11 cm right ovarian cyst, benign in appearance. Small 4 cm cyst on the left, appearing to be a functional cyst. Also, slight omental adhesion on the left side of the pelvis. SPECIMENS REMOVED: Right tube and ovary. COMPLICATIONS: None. DESCRIPTION OF PROCEDURE: The patient was taken to the operating room where general endotracheal intubation was obtained without difficulty. The patient was prepped and draped in normal sterile fashion. Please see Dr. Marina's dictated operative note for port placement. Visualization of the pelvis revealed a right ovarian cyst approximately 11 cm in size. Decision was made to perform an oophorectomy opposed to cystectomy the cyst could not be dealinated from the ovary.The appearance was smooth and appeared benign. It was very difficult to see the uterine pedicles, so decision was made to aspirate the cyst. A needle was placed into the ovary and the fluid was aspirated with a syringe. The cyst fluid clear serosanguineous with a straw appearance consistent with the cyst being benign. After the cyst was aspirated, the right tube was then grasped to help identify the infundibulopelvic ligament. Once this was identified, the LigaSure device was used to ligate the infundibulopelvic ligament. It was still difficult to see the uteroovarian ligament, so the cyst was then fenestrated and the suction clinical care coordinator was used to remove the remaining fluid. Once it was easier to identify, the uteroovarian pedicle of the ovarian ligament was then ligated with the LigaSure device. At that point, once the ovary was free, it was placed in a BioCatch bag and removed. This was sent to pathology. For the remainder portion of the surgery, please see Dr. Marina's operative report. ABDOULAYE HAHN MD DR: CHRISSY/emil JOB#: [id number] / [id number] LUDY
[2019-11-14] MEDS: IV RINGERS,LACTATED 1000ML 1,000 ML IV SCH (22:57)
[2019-11-15] VITALS (9 sets, daily range): BP systolic 113–162; BP diastolic 67–92
[2019-11-15] MEDS: MORPHINE SULFATE 2 MG/ML VIAL. IV PRN ×5 (00:04→13:47)
[2019-11-15] MEDS: PIPERACILLIN/TAZOBACTAM 3.375 GM in IV NORMAL SALINE 50ML 50 ML IV SCH ×4 (00:05→17:42)
[2019-11-15] MEDS: HYDROcodone/APAP 5/325MG 1 TAB TABLET PO PRN ×3 (01:41→20:27)
[2019-11-15 04:43] LABS: BASO % 0 % (0-3); EOS % 0 % (0-3); HEMATOCRIT 34.9 % (36.0-47.0); HEMOGLOBIN 11.8 g/dL (12.0-15.5); LYMPH # 0.5 x10^3/uL (1.0-4.8); LYMPH % 4 % (24-48); MEAN CORPUSCULAR HEMOGLOBIN 31 pg (25-35); MEAN CORPUSCULAR HGB CONC 34 g/dL (31-37); MEAN CORPUSCULAR VOLUME 90 fL (79-100); MONO # 0.9 x10^3/uL (0.0-1.1); MONO % 7 % (0-9); NEUT # 12.2 x10^3/uL (1.8-7.7); NEUT % 90 % (31-73); PLATELET COUNT 275 x10^3/uL (140-400); RED BLOOD COUNT 3.86 x10^6/uL (3.50-5.40); RED CELL DISTRIBUTION WIDTH 13.7 % (11.5-14.5); WHITE BLOOD COUNT 13.7 x10^3/uL (4.0-11.0)
[2019-11-15 05:05] LABS: ALBUMIN 2.5 g/dL (3.4-5.0); CALCIUM 7.9 mg/dL (8.5-10.1); CREATININE 0.7 mg/dL (0.6-1.0); DIRECT BILIRUBIN 0.4 mg/dL (0.0-0.2); GFR 94.2; TOTAL BILIRUBIN 0.7 mg/dL (0.2-1.0); TOTAL PROTEIN 6.3 g/dL (6.4-8.2)
[2019-11-15] MEDS: PANTOPRAZOLE IV PUSH 40 MG VIAL. IVP SCH (05:28)
--- NOTE | 2019-11-15 07:15 | RAD ---
EXAM: INTRAOPERATIVE CHOLANGIOGRAM. HISTORY: Intraoperative cholangiogram with cholecystectomy. COMPARISON: None. FINDINGS: 2 fluoroscopic images are obtained intraoperatively during injection of the cystic duct remnant after cholecystectomy. A relative lucency within the midportion of the common duct on the second image is not present on the first image. Artifact is favored over choledocholithiasis. The common duct is not dilated. Fluoroscopy time 0.3 minutes. IMPRESSION: 1. No clear evidence of retained stones. Electronically signed by: Patrick Nixon MD (11/15/2019 7:12 AM) [id number]
[2019-11-15] MEDS: IV RINGERS,LACTATED 1000ML 1,000 ML IV SCH ×2 (07:30→12:13)
[2019-11-15] MEDS: DOCUSATE SODIUM 100 MG CAPSULE. PO SCH ×2 (08:56→21:40)
[2019-11-15 10:18] LABS: % BANDS 2 % (0-9); % LYMPHS 4 % (24-48); % MONOS 4 % (0-10); % SEGS 90 % (35-66); PLT ESTIMATE ADEQUATE (ADEQUATE)
--- NOTE | 2019-11-15 12:51 | PDOC ---
SURGICAL PROGRESS NOTE DATE: 11/15/19 TIME: 12:50 Subjective feeling better tolerating diet Vital Signs Vital Signs Date Time Temp Pulse Resp B/P (MAP) Pulse Ox O2 Delivery O2 Flow Rate FiO2 11/15/19 11:39 Room Air 11/15/19 07:00 98.6 109 16 162/81 (108) 95 98.6 11/14/19 22:00 6.0 I&O Intake and Output 11/15/19 06:59 Intake Total 2650 ml Output Total 1070 ml Balance 1580 ml Intake Oral 200 ml IV Total 2450 ml Output Urine Total 600 ml Drainage Total 370 ml Estimated Blood Loss 100 ml # Voids 2 General: Alert, Oriented X3, Cooperative Abdomen: Soft, Other (drain serosang ) Labs Laboratory Tests Test 11/14/19 09:20 11/14/19 14:30 11/15/19 04:00 Total Bilirubin 0.6 mg/dL (0.2-1.0) 0.7 mg/dL (0.2-1.0) Direct Bilirubin 0.3 mg/dL (0.0-0.2) 0.4 mg/dL (0.0-0.2) Aspartate Amino Transf (AST/SGOT) 20 U/L (15-37) 40 U/L (15-37) Alanine Aminotransferase (ALT/SGPT) 30 U/L (14-59) 34 U/L (14-59) Alkaline Phosphatase 67 U/L (46-116) 66 U/L (46-116) Total Protein 6.5 g/dL (6.4-8.2) 6.3 g/dL (6.4-8.2) Albumin 2.9 g/dL (3.4-5.0) 2.5 g/dL (3.4-5.0) CA 125 Antigen 12.9 U/mL (0.0-38.1) Urine Test Negative (NEG) White Blood Count 13.7 x10^3/uL (4.0-11.0) Red Blood Count 3.86 x10^6/uL (3.50-5.40) Hemoglobin 11.8 g/dL (12.0-15.5) Hematocrit 34.9 % (36.0-47.0) Mean Corpuscular Volume 90 fL (79-100) Mean Corpuscular Hemoglobin 31 pg (25-35) Mean Corpuscular Hemoglobin Concent 34 g/dL (31-37) Red Cell Distribution Width 13.7 % (11.5-14.5) Platelet Count 275 x10^3/uL (140-400) Neutrophils (%) (Auto) 90 % (31-73) Lymphocytes (%) (Auto) 4 % (24-48) Monocytes (%) (Auto) 7 % (0-9) Eosinophils (%) (Auto) 0 % (0-3) Basophils (%) (Auto) 0 % (0-3) Neutrophils # (Auto) 12.2 x10^3/uL (1.8-7.7) Lymphocytes # (Auto) 0.5 x10^3/uL (1.0-4.8) Monocytes # (Auto) 0.9 x10^3/uL (0.0-1.1) Eosinophils # (Auto) 0.0 x10^3/uL (0.0-0.7) Basophils # (Auto) 0.0 x10^3/uL (0.0-0.2) Segmented Neutrophils % 90 % (35-66) Band Neutrophils % 2 % (0-9) Lymphocytes % 4 % (24-48) Monocytes % 4 % (0-10) Platelet Estimate Adequate (ADEQUATE) Sodium Level 138 mmol/L (136-145) Potassium Level 3.0 mmol/L (3.5-5.1) Chloride Level 103 mmol/L (98-107) Carbon Dioxide Level 24 mmol/L (21-32) Anion Gap 11 (6-14) Blood Urea Nitrogen 4 mg/dL (7-20) Creatinine 0.7 mg/dL (0.6-1.0) Estimated GFR (Cockcroft-Gault) 94.2 Glucose Level 110 mg/dL (70-99) Calcium Level 7.9 mg/dL (8.5-10.1) Laboratory Tests Test 11/14/19 14:30 11/15/19 04:00 Urine Test Negative (NEG) White Blood Count 13.7 x10^3/uL (4.0-11.0) Red Blood Count 3.86 x10^6/uL (3.50-5.40) Hemoglobin 11.8 g/dL (12.0-15.5) Hematocrit 34.9 % (36.0-47.0) Mean Corpuscular Volume 90 fL (79-100) Mean Corpuscular Hemoglobin 31 pg (25-35) Mean Corpuscular Hemoglobin Concent 34 g/dL (31-37) Red Cell Distribution Width 13.7 % (11.5-14.5) Platelet Count 275 x10^3/uL (140-400) Neutrophils (%) (Auto) 90 % (31-73) Lymphocytes (%) (Auto) 4 % (24-48) Monocytes (%) (Auto) 7 % (0-9) Eosinophils (%) (Auto) 0 % (0-3) Basophils (%) (Auto) 0 % (0-3) Neutrophils # (Auto) 12.2 x10^3/uL (1.8-7.7) Lymphocytes # (Auto) 0.5 x10^3/uL (1.0-4.8) Monocytes # (Auto) 0.9 x10^3/uL (0.0-1.1) Eosinophils # (Auto) 0.0 x10^3/uL (0.0-0.7) Basophils # (Auto) 0.0 x10^3/uL (0.0-0.2) Segmented Neutrophils % 90 % (35-66) Band Neutrophils % 2 % (0-9) Lymphocytes % 4 % (24-48) Monocytes % 4 % (0-10) Platelet Estimate Adequate (ADEQUATE) Sodium Level 138 mmol/L (136-145) Potassium Level 3.0 mmol/L (3.5-5.1) Chloride Level 103 mmol/L (98-107) Carbon Dioxide Level 24 mmol/L (21-32) Anion Gap 11 (6-14) Blood Urea Nitrogen 4 mg/dL (7-20) Creatinine 0.7 mg/dL (0.6-1.0) Estimated GFR (Cockcroft-Gault) 94.2 Glucose Level 110 mg/dL (70-99) Calcium Level 7.9 mg/dL (8.5-10.1) Total Bilirubin 0.7 mg/dL (0.2-1.0) Direct Bilirubin 0.4 mg/dL (0.0-0.2) Aspartate Amino Transf (AST/SGOT) 40 U/L (15-37) Alanine Aminotransferase (ALT/SGPT) 34 U/L (14-59) Alkaline Phosphatase 66 U/L (46-116) Total Protein 6.3 g/dL (6.4-8.2) Albumin 2.5 g/dL (3.4-5.0) Problem List Problems Medical Problems: (1) Fibroid uterus Status: Acute Assessment/Plan s/p tristin continue drain, abx Justicifation of Admission Dx: Justifications for Admission: Justification of Admission Dx: Yes ADRY KOHLER CYTOPATHOLOGY TECHNOLOGIST Nov 15, 2019 12:51
--- NOTE | 2019-11-15 13:06 | PDOC ---
IMMIGRATION LAW SPECIALIST PROGRESS NOTE Date of Service: DATE: 11/15/19 TIME: 13:03 Subjective: Pt with some postop pain, but overall good pain control. Encouraged to be more active. Discussed intraop findings and how RSO was performed. Cyst and ovary appeared benign and that pathology will probably be back after d/c. Objective: Vital Signs: Vital Signs Date Time Temp Pulse Resp B/P (MAP) Pulse Ox O2 Delivery O2 Flow Rate FiO2 11/14/19 07:15 98.5 94 16 138/84 (102) 93 Room Air 98.5 11/14/19 21:29 12 Vital Signs Date Time Temp Pulse Resp B/P (MAP) Pulse Ox O2 Delivery O2 Flow Rate FiO2 11/15/19 11:39 Room Air 11/15/19 11:00 98.5 107 128/84 (99) 93 98.5 11/15/19 07:00 16 11/14/19 22:00 6.0 Labs: Laboratory Tests Test 11/14/19 14:30 11/15/19 04:00 Urine Test Negative (NEG) White Blood Count 13.7 x10^3/uL (4.0-11.0) H Red Blood Count 3.86 x10^6/uL (3.50-5.40) Hemoglobin 11.8 g/dL (12.0-15.5) L Hematocrit 34.9 % (36.0-47.0) L Mean Corpuscular Volume 90 fL (79-100) Mean Corpuscular Hemoglobin 31 pg (25-35) Mean Corpuscular Hemoglobin Concent 34 g/dL (31-37) Red Cell Distribution Width 13.7 % (11.5-14.5) Platelet Count 275 x10^3/uL (140-400) Neutrophils (%) (Auto) 90 % (31-73) H Lymphocytes (%) (Auto) 4 % (24-48) L Monocytes (%) (Auto) 7 % (0-9) Eosinophils (%) (Auto) 0 % (0-3) Basophils (%) (Auto) 0 % (0-3) Neutrophils # (Auto) 12.2 x10^3/uL (1.8-7.7) H Lymphocytes # (Auto) 0.5 x10^3/uL (1.0-4.8) L Monocytes # (Auto) 0.9 x10^3/uL (0.0-1.1) Eosinophils # (Auto) 0.0 x10^3/uL (0.0-0.7) Basophils # (Auto) 0.0 x10^3/uL (0.0-0.2) Segmented Neutrophils % 90 % (35-66) H Band Neutrophils % 2 % (0-9) Lymphocytes % 4 % (24-48) L Monocytes % 4 % (0-10) Platelet Estimate Adequate (ADEQUATE) Sodium Level 138 mmol/L (136-145) Potassium Level 3.0 mmol/L (3.5-5.1) L Chloride Level 103 mmol/L (98-107) Carbon Dioxide Level 24 mmol/L (21-32) Anion Gap 11 (6-14) Blood Urea Nitrogen 4 mg/dL (7-20) L Creatinine 0.7 mg/dL (0.6-1.0) Estimated GFR (Cockcroft-Gault) 94.2 Glucose Level 110 mg/dL (70-99) H Calcium Level 7.9 mg/dL (8.5-10.1) L Total Bilirubin 0.7 mg/dL (0.2-1.0) Direct Bilirubin 0.4 mg/dL (0.0-0.2) H Aspartate Amino Transferase (AST) 40 U/L (15-37) H Alanine Aminotransferase (ALT) 34 U/L (14-59) Alkaline Phosphatase 66 U/L (46-116) Total Protein 6.3 g/dL (6.4-8.2) L Albumin 2.5 g/dL (3.4-5.0) L Laboratory Tests 11/15/19 04:00 Laboratory Tests 11/15/19 04:00 Laboratory Tests 11/15/19 04:00 Physical Exam: GENERAL: No apparent distress. Alert and oriented. HEENT: Head normocephalic, atraumatic. NECK: Supple LUNGS: Clear to auscultation. HEART: RRR, S1, S2 present, pulses intact ABDOMEN: Soft, positive bowel sounds. EXTREMITIES: No cyanosis or edema. NEUROLOGIC: Normal speech, normal tone PSYCHIATRIC: Normal affect, normal mood. SKIN: No ulceration. Assessment & Plan: A/P 39y G0 wit N/V/abd pain likely from Cholelithiasis 1.) Pelvic masses bilateral adnexal masses measuring 11 cm (on right) and 6.4 cm (on the left), h/o myomectomy in 2015. CA 125 nml. POD #1 s/p L/S RSO, benign appearance intraop. 2.) Cholelithiasis POD #1 s/p Lap Vikki 3.) Contraception none 4.) H/o open myomectomy 5.) Gastritis long standing hx 6.) Asthma 7.) Will cont follow AMENA HAHN MD Nov 15, 2019 13:06
[2019-11-15] MEDS ORDERED: POTASSIUM CHLORIDE 20 MEQ TABLET.ER. PO ONE (15:30)
[2019-11-15] MEDS ORDERED: IBUPROFEN 400 MG TABLET. PO PRN (15:30)
--- NOTE | 2019-11-15 16:08 | PDOC ---
GENERAL General: Patient examined chart reviewed discussed with nursing. She is postop day 1 from a cholecystectomy and right salpingo-oophorectomy from a benign ovarian cyst. We appreciate general surgery and gynecologic support. Her pain is suboptimal she admits that she is having a hard time getting up and moving which she knows will help. We will add Motrin with food as needed and immediate release oxycodone if pain is not controlled with the hydrocodone. She wants to minimize medicine but will take what she needs to get up and moving. We will continue current management otherwise. Problems: (1) Right ovarian cyst (2) S/P cholecystectomy (3) History of right salpingo-oophorectomy VITAL SIGNS Vital Signs/I&O: Vital Signs Date Time Temp Pulse Resp B/P (MAP) Pulse Ox O2 Delivery O2 Flow Rate FiO2 11/15/19 14:17 Room Air 11/15/19 11:00 98.5 107 128/84 (99) 93 98.5 11/15/19 07:00 16 11/14/19 22:00 6.0 I & O 11/14/19 11/14/19 11/15/19 14:59 22:59 06:59 Intake Total 2450 ml 200 ml Output Total 890 ml 180 ml Balance 1560 ml 20 ml In general the patient is pleasant alert and oriented x3 no acute distress HEENT exam is unremarkable for acute abnormality Chest is clear to auscultation Heart S1-S2 normal regular rate and rhythm no murmurs or gallops are noted Abdomen bowel sounds are and active she is tender throughout her dressings are dry and intact Extremity exam is unremarkable for acute abnormality ALLERGIES Allergies: Allergies Coded Allergies Type Severity Reaction Last Updated Verified No Known Drug Allergies 07/31/14 No MEDS Medications: Current Medications Medications (Trade) Dose Ordered Sig/Leonel Start Time Stop Time Status Last Admin Dose Admin Acetaminophen/ Hydrocodone Bitart (Lortab 5/325) 1 tab PRN Q4HRS PRN 11/14/19 21:30 11/15/19 10:39 Bisacodyl (Dulcolax Supp) 10 mg STK-MED ONCE 11/14/19 16:09 11/14/19 16:09 DC 11/14/19 19:43 Bupivacaine HCl/ Epinephrine Bitart (Sensorcain-Epi 0.5%-1:996532 Mpf) 30 ml STK-MED ONCE 11/14/19 16:09 11/14/19 16:09 DC 11/14/19 19:43 Cellulose (Surgicel Hemostat 4x8) 1 each STK-MED ONCE 11/14/19 16:31 11/14/19 16:32 DC 11/14/19 19:43 Dexamethasone Sodium Phosphate (Decadron) 4 mg STK-MED ONCE 11/14/19 18:36 11/14/19 18:37 DC Dextrose (Dextrose 50%-Water Syringe) 12.5 gm PRN Q15MIN PRN 11/14/19 21:30 Docusate Sodium (Colace) 100 mg BID 11/15/19 09:00 11/15/19 08:56 Esmolol HCl (Brevibloc) 100 mg STK-MED ONCE 11/14/19 20:40 11/14/19 20:40 DC Fentanyl Citrate (Fentanyl 2ml Vial) 100 mcg STK-MED ONCE 11/14/19 21:46 11/14/19 21:46 DC Glycopyrrolate (Robinul) 1 mg STK-MED ONCE 11/14/19 20:24 11/14/19 20:24 DC Heparin Sodium (Porcine) 1000 unit/Sodium Chloride 1,001 ml @ 1,001 mls/hr 1X ONCE 11/14/19 17:00 11/14/19 17:59 DC 11/14/19 19:43 Hydromorphone HCl (Dilaudid) 0.5 mg PRN Q10MIN PRN 11/14/19 17:15 11/15/19 15:26 DC Ibuprofen (Motrin) 800 mg PRN Q6HRS PRN 11/15/19 15:30 Iohexol (Omnipaque 300 Mg/ml) 50 ml STK-MED ONCE 11/14/19 16:09 11/14/19 16:09 DC 11/14/19 19:43 Ketorolac Tromethamine (Toradol 30mg Vial) 30 mg STK-MED ONCE 11/14/19 20:23 11/14/19 20:24 DC Lidocaine HCl (Lidocaine Pf 2% Vial) 5 ml STK-MED ONCE 11/14/19 18:36 11/14/19 18:37 DC Lidocaine HCl (Xylocaine-Mpf 1% 2ml Vial) 2 ml PRN 1X PRN 11/14/19 17:15 11/14/19 21:30 DC Midazolam HCl (Versed) 2 mg STK-MED ONCE 11/14/19 18:37 11/14/19 18:37 DC Morphine Sulfate (Morphine Sulfate) 2 mg PRN Q2HR PRN 11/15/19 07:45 11/15/19 13:47 Naloxone HCl (Narcan) 0.4 mg PRN Q2MIN PRN 11/14/19 21:30 Neostigmine [place] (Neostigmine Methylsulfate) 5 mg STK-MED ONCE 11/14/19 20:24 11/14/19 20:24 DC Ondansetron HCl (Zofran) 4 mg PRN Q6HRS PRN 11/14/19 21:30 Oxycodone HCl (Roxicodone) 10 mg PRN Q4HRS PRN 11/15/19 15:30 Pantoprazole Sodium (PROTONIX VIAL for IV PUSH) 40 mg DAILYAC 11/13/19 13:30 11/15/19 05:28 Piperacillin Sod/ Tazobactam Sod 3.375 gm/Sodium Chloride 50 ml @ 100 mls/hr Q6HRS 11/13/19 09:30 11/15/19 12:13 Potassium Chloride (Klor-Con) 20 meq 1X ONCE 11/15/19 15:30 11/15/19 15:31 DC Prochlorperazine Edisylate (Compazine) 5 mg PACU PRN PRN 11/14/19 17:15 11/15/19 15:26 DC Propofol (Diprivan) 200 mg STK-MED ONCE 11/14/19 18:36 11/14/19 18:37 DC Ringer's Solution 1,000 ml @ 100 mls/hr Q10H 11/14/19 21:30 11/15/19 12:13 Rocuronium [place] (Zemuron) 100 mg STK-MED ONCE 11/14/19 18:36 11/14/19 18:37 DC Sevoflurane (Ultane) 60 ml STK-MED ONCE 11/14/19 21:13 11/14/19 21:14 DC Sodium Chloride 1,000 ml @ 25 mls/hr Q24H 11/14/19 21:30 Sodium Chloride (Normal Saline Flush) 3 ml QSHIFT PRN 11/14/19 21:30 Succinylcholine Chloride (Anectine) 200 mg STK-MED ONCE 11/14/19 18:45 11/14/19 18:46 DC Current Medications Medications (Trade) Dose Ordered Sig/Leonel Route PRN Reason Start Time Stop Time Status Last Admin Dose Admin Bupivacaine HCl/ Epinephrine Bitart (Sensorcain-Epi 0.5%-1:277412 Mpf) 30 ml STK-MED ONCE .ROUTE 11/14/19 16:09 11/14/19 16:09 DC 11/14/19 19:43 Iohexol (Omnipaque 300 Mg/ml) 50 ml STK-MED ONCE .ROUTE 11/14/19 16:09 11/14/19 16:09 DC 11/14/19 19:43 Bisacodyl (Dulcolax Supp) 10 mg STK-MED ONCE .ROUTE 11/14/19 16:09 11/14/19 16:09 DC 11/14/19 19:43 Heparin Sodium (Porcine) 1000 unit/Sodium Chloride 1,001 ml @ 1,001 mls/hr 1X ONCE IRR 11/14/19 17:00 11/14/19 17:59 DC 11/14/19 19:43 Cellulose (Surgicel Hemostat 4x8) 1 each STK-MED ONCE .ROUTE 11/14/19 16:31 11/14/19 16:32 DC 11/14/19 19:43 Fentanyl Citrate (Fentanyl 2ml Vial) 50 mcg PRN Q5MIN PRN IV MODERATE TO SEVERE PAIN 11/14/19 17:15 11/15/19 15:26 DC 11/14/19 22:00 Ringer's Solution 1,000 ml @ 30 mls/hr Q24H IV 11/14/19 17:12 11/14/19 21:28 DC 11/14/19 19:16 Ringer's Solution 1,000 ml @ 100 mls/hr Q10H IV 11/14/19 21:30 11/15/19 12:13 Acetaminophen/ Hydrocodone Bitart (Lortab 5/325) 1 tab PRN Q4HRS PRN PO MILD PAIN 1-3 11/14/19 21:30 11/15/19 10:39 Morphine Sulfate (Morphine Sulfate) 1 mg PRN Q1HR PRN IV PAIN 8/21/20 21:30 11/15/19 15:41 DC 11/15/19 06:40 Docusate Sodium (Colace) 100 mg BID PO 11/15/19 09:00 11/15/19 08:56 Morphine Sulfate (Morphine Sulfate) 2 mg PRN Q2HR PRN IV PAIN 11/15/19 07:45 11/15/19 13:47 LAB Lab: Laboratory Tests Test 11/15/19 04:00 White Blood Count 13.7 x10^3/uL (4.0-11.0) H Red Blood Count 3.86 x10^6/uL (3.50-5.40) Hemoglobin 11.8 g/dL (12.0-15.5) L Hematocrit 34.9 % (36.0-47.0) L Mean Corpuscular Volume 90 fL (79-100) Mean Corpuscular Hemoglobin 31 pg (25-35) Mean Corpuscular Hemoglobin Concent 34 g/dL (31-37) Red Cell Distribution Width 13.7 % (11.5-14.5) Platelet Count 275 x10^3/uL (140-400) Neutrophils (%) (Auto) 90 % (31-73) H Lymphocytes (%) (Auto) 4 % (24-48) L Monocytes (%) (Auto) 7 % (0-9) Eosinophils (%) (Auto) 0 % (0-3) Basophils (%) (Auto) 0 % (0-3) Neutrophils # (Auto) 12.2 x10^3/uL (1.8-7.7) H Lymphocytes # (Auto) 0.5 x10^3/uL (1.0-4.8) L Monocytes # (Auto) 0.9 x10^3/uL (0.0-1.1) Eosinophils # (Auto) 0.0 x10^3/uL (0.0-0.7) Basophils # (Auto) 0.0 x10^3/uL (0.0-0.2) Segmented Neutrophils % 90 % (35-66) H Band Neutrophils % 2 % (0-9) Lymphocytes % 4 % (24-48) L Monocytes % 4 % (0-10) Platelet Estimate Adequate (ADEQUATE) Sodium Level 138 mmol/L (136-145) Potassium Level 3.0 mmol/L (3.5-5.1) L Chloride Level 103 mmol/L (98-107) Carbon Dioxide Level 24 mmol/L (21-32) Anion Gap 11 (6-14) Blood Urea Nitrogen 4 mg/dL (7-20) L Creatinine 0.7 mg/dL (0.6-1.0) Estimated GFR (Cockcroft-Gault) 94.2 Glucose Level 110 mg/dL (70-99) H Calcium Level 7.9 mg/dL (8.5-10.1) L Total Bilirubin 0.7 mg/dL (0.2-1.0) Direct Bilirubin 0.4 mg/dL (0.0-0.2) H Aspartate Amino Transferase (AST) 40 U/L (15-37) H Alanine Aminotransferase (ALT) 34 U/L (14-59) Alkaline Phosphatase 66 U/L (46-116) Total Protein 6.3 g/dL (6.4-8.2) L Albumin 2.5 g/dL (3.4-5.0) L Laboratory Tests 11/15/19 04:00 Laboratory Tests 11/15/19 04:00 ASSESSMENT & PLAN A&P Plan as noted above This note was created using [employer] and may have omissions and/or errors due to the nature of real-time voice parachute officer. Justicifation of Admission Dx: Justifications for Admission: Justification of Admission Dx: Yes ALEX GUTIERREZ MD Nov 15, 2019 16:08
[2019-11-15] MEDS: oxyCODONE IR 5 MG TABLET PO PRN (17:41)
[2019-11-15] MEDS: IV NORMAL SALINE 1000ML BAG 1,000 ML IV SCH (21:30)
[2019-11-16] MEDS: PIPERACILLIN/TAZOBACTAM 3.375 GM in IV NORMAL SALINE 50ML 50 ML IV SCH ×4 (00:15→18:41)
[2019-11-16] MEDS: IV RINGERS,LACTATED 1000ML 1,000 ML IV SCH ×2 (02:24→11:59)
[2019-11-16] MEDS: oxyCODONE IR 5 MG TABLET PO PRN ×3 (02:28→19:11)
[2019-11-16 03:07] VITALS: BP 163/82
[2019-11-16 05:31] LABS: BASO % 0 % (0-3); EOS # 0.1 x10^3/uL (0.0-0.7); EOS % 2 % (0-3); HEMOGLOBIN 10.9 g/dL (12.0-15.5); LYMPH # 1.5 x10^3/uL (1.0-4.8); LYMPH % 19 % (24-48); MEAN CORPUSCULAR HEMOGLOBIN 30 pg (25-35); MEAN CORPUSCULAR HGB CONC 33 g/dL (31-37); MEAN CORPUSCULAR VOLUME 91 fL (79-100); MONO # 0.7 x10^3/uL (0.0-1.1); MONO % 9 % (0-9); NEUT # 5.5 x10^3/uL (1.8-7.7); NEUT % 71 % (31-73); PLATELET COUNT 258 x10^3/uL (140-400); RED BLOOD COUNT 3.63 x10^6/uL (3.50-5.40); RED CELL DISTRIBUTION WIDTH 13.4 % (11.5-14.5); WHITE BLOOD COUNT 7.8 x10^3/uL (4.0-11.0)
[2019-11-16 05:53] LABS: ALBUMIN 2.1 g/dL (3.4-5.0); ALBUMIN/GLOBULIN RATIO 0.7 (1.0-1.7); CALCIUM 7.5 mg/dL (8.5-10.1); CREATININE 0.7 mg/dL (0.6-1.0); GFR 94.2; POTASSIUM 3.5 mmol/L (3.5-5.1); TOTAL BILIRUBIN 0.6 mg/dL (0.2-1.0); TOTAL PROTEIN 5.3 g/dL (6.4-8.2)
[2019-11-16 07:00] VITALS: BP 123/82
[2019-11-16] MEDS: DOCUSATE SODIUM 100 MG CAPSULE. PO SCH ×2 (07:51→21:11)
[2019-11-16] MEDS: PANTOPRAZOLE IV PUSH 40 MG VIAL. IVP SCH (07:51)
[2019-11-16] MEDS: HYDROcodone/APAP 5/325MG 1 TAB TABLET PO PRN ×2 (07:52→15:25)
--- NOTE | 2019-11-16 08:33 | PDOC ---
SURGICAL PROGRESS NOTE DATE: 11/16/19 TIME: 08:32 Subjective pain improving feeling better Vital Signs Vital Signs Date Time Temp Pulse Resp B/P (MAP) Pulse Ox O2 Delivery O2 Flow Rate FiO2 11/16/19 07:52 Room Air 11/16/19 03:28 20 11/16/19 03:07 98.0 112 163/82 (109) 94 98.0 I&O Intake and Output 11/16/19 07:00 Intake Total 2400 ml Output Total 400 ml Balance 2000 ml IV Total 1200 ml Other 1200 ml Output Urine Total 400 ml # Voids 4 General: Alert, Oriented X3, Cooperative Abdomen: Soft, Other (ND, drain serosang ) Labs Laboratory Tests Test 11/14/19 09:20 11/14/19 14:30 11/15/19 04:00 11/16/19 04:31 Total Bilirubin 0.6 mg/dL (0.2-1.0) 0.7 mg/dL (0.2-1.0) 0.6 mg/dL (0.2-1.0) Direct Bilirubin 0.3 mg/dL (0.0-0.2) 0.4 mg/dL (0.0-0.2) Aspartate Amino Transf (AST/SGOT) 20 U/L (15-37) 40 U/L (15-37) 22 U/L (15-37) Alanine Aminotransferase (ALT/SGPT) 30 U/L (14-59) 34 U/L (14-59) 25 U/L (14-59) Alkaline Phosphatase 67 U/L (46-116) 66 U/L (46-116) 60 U/L (46-116) Total Protein 6.5 g/dL (6.4-8.2) 6.3 g/dL (6.4-8.2) 5.3 g/dL (6.4-8.2) Albumin 2.9 g/dL (3.4-5.0) 2.5 g/dL (3.4-5.0) 2.1 g/dL (3.4-5.0) CA 125 Antigen 12.9 U/mL (0.0-38.1) Urine Test Negative (NEG) White Blood Count 13.7 x10^3/uL (4.0-11.0) 7.8 x10^3/uL (4.0-11.0) Red Blood Count 3.86 x10^6/uL (3.50-5.40) 3.63 x10^6/uL (3.50-5.40) Hemoglobin 11.8 g/dL (12.0-15.5) 10.9 g/dL (12.0-15.5) Hematocrit 34.9 % (36.0-47.0) 33.0 % (36.0-47.0) Mean Corpuscular Volume 90 fL (79-100) 91 fL (79-100) Mean Corpuscular Hemoglobin 31 pg (25-35) 30 pg (25-35) Mean Corpuscular Hemoglobin Concent 34 g/dL (31-37) 33 g/dL (31-37) Red Cell Distribution Width 13.7 % (11.5-14.5) 13.4 % (11.5-14.5) Platelet Count 275 x10^3/uL (140-400) 258 x10^3/uL (140-400) Neutrophils (%) (Auto) 90 % (31-73) 71 % (31-73) Lymphocytes (%) (Auto) 4 % (24-48) 19 % (24-48) Monocytes (%) (Auto) 7 % (0-9) 9 % (0-9) Eosinophils (%) (Auto) 0 % (0-3) 2 % (0-3) Basophils (%) (Auto) 0 % (0-3) 0 % (0-3) Neutrophils # (Auto) 12.2 x10^3/uL (1.8-7.7) 5.5 x10^3/uL (1.8-7.7) Lymphocytes # (Auto) 0.5 x10^3/uL (1.0-4.8) 1.5 x10^3/uL (1.0-4.8) Monocytes # (Auto) 0.9 x10^3/uL (0.0-1.1) 0.7 x10^3/uL (0.0-1.1) Eosinophils # (Auto) 0.0 x10^3/uL (0.0-0.7) 0.1 x10^3/uL (0.0-0.7) Basophils # (Auto) 0.0 x10^3/uL (0.0-0.2) 0.0 x10^3/uL (0.0-0.2) Segmented Neutrophils % 90 % (35-66) Band Neutrophils % 2 % (0-9) Lymphocytes % 4 % (24-48) Monocytes % 4 % (0-10) Platelet Estimate Adequate (ADEQUATE) Sodium Level 138 mmol/L (136-145) 142 mmol/L (136-145) Potassium Level 3.0 mmol/L (3.5-5.1) 3.5 mmol/L (3.5-5.1) Chloride Level 103 mmol/L (98-107) 105 mmol/L (98-107) Carbon Dioxide Level 24 mmol/L (21-32) 28 mmol/L (21-32) Anion Gap 11 (6-14) 9 (6-14) Blood Urea Nitrogen 4 mg/dL (7-20) 6 mg/dL (7-20) Creatinine 0.7 mg/dL (0.6-1.0) 0.7 mg/dL (0.6-1.0) Estimated GFR (Cockcroft-Gault) 94.2 94.2 Glucose Level 110 mg/dL (70-99) 93 mg/dL (70-99) Calcium Level 7.9 mg/dL (8.5-10.1) 7.5 mg/dL (8.5-10.1) BUN/Creatinine Ratio 9 (6-20) Albumin/Globulin Ratio 0.7 (1.0-1.7) Laboratory Tests Test 11/16/19 04:31 White Blood Count 7.8 x10^3/uL (4.0-11.0) Red Blood Count 3.63 x10^6/uL (3.50-5.40) Hemoglobin 10.9 g/dL (12.0-15.5) Hematocrit 33.0 % (36.0-47.0) Mean Corpuscular Volume 91 fL (79-100) Mean Corpuscular Hemoglobin 30 pg (25-35) Mean Corpuscular Hemoglobin Concent 33 g/dL (31-37) Red Cell Distribution Width 13.4 % (11.5-14.5) Platelet Count 258 x10^3/uL (140-400) Neutrophils (%) (Auto) 71 % (31-73) Lymphocytes (%) (Auto) 19 % (24-48) Monocytes (%) (Auto) 9 % (0-9) Eosinophils (%) (Auto) 2 % (0-3) Basophils (%) (Auto) 0 % (0-3) Neutrophils # (Auto) 5.5 x10^3/uL (1.8-7.7) Lymphocytes # (Auto) 1.5 x10^3/uL (1.0-4.8) Monocytes # (Auto) 0.7 x10^3/uL (0.0-1.1) Eosinophils # (Auto) 0.1 x10^3/uL (0.0-0.7) Basophils # (Auto) 0.0 x10^3/uL (0.0-0.2) Sodium Level 142 mmol/L (136-145) Potassium Level 3.5 mmol/L (3.5-5.1) Chloride Level 105 mmol/L (98-107) Carbon Dioxide Level 28 mmol/L (21-32) Anion Gap 9 (6-14) Blood Urea Nitrogen 6 mg/dL (7-20) Creatinine 0.7 mg/dL (0.6-1.0) Estimated GFR (Cockcroft-Gault) 94.2 BUN/Creatinine Ratio 9 (6-20) Glucose Level 93 mg/dL (70-99) Calcium Level 7.5 mg/dL (8.5-10.1) Total Bilirubin 0.6 mg/dL (0.2-1.0) Aspartate Amino Transf (AST/SGOT) 22 U/L (15-37) Alanine Aminotransferase (ALT/SGPT) 25 U/L (14-59) Alkaline Phosphatase 60 U/L (46-116) Total Protein 5.3 g/dL (6.4-8.2) Albumin 2.1 g/dL (3.4-5.0) Albumin/Globulin Ratio 0.7 (1.0-1.7) Problem List Problems Medical Problems: (1) Fibroid uterus Status: Acute Assessment/Plan s/p tristin improving drain and abx Justicifation of Admission Dx: Justifications for Admission: Justification of Admission Dx: Yes ADRY KOHLER OUTSIDE COLLECTOR Nov 16, 2019 08:33
[2019-11-16 11:00] VITALS: BP 135/85
--- NOTE | 2019-11-16 11:21 | PDOC ---
DROP SHIPMENT CLERK PROGRESS NOTE Date of Service: DATE: 11/16/19 TIME: 11:20 Subjective: Pt with improved pain control. Darryl PO. Voiding. Objective: Vital Signs: Vital Signs Date Time Temp Pulse Resp B/P (MAP) Pulse Ox O2 Delivery O2 Flow Rate FiO2 11/15/19 07:00 98.6 109 16 162/81 (108) 95 Room Air 98.6 Vital Signs Date Time Temp Pulse Resp B/P (MAP) Pulse Ox O2 Delivery O2 Flow Rate FiO2 11/16/19 08:52 Room Air 11/16/19 07:00 98.6 107 14 123/82 (96) 93 98.6 Labs: Laboratory Tests Test 11/16/19 04:31 White Blood Count 7.8 x10^3/uL (4.0-11.0) Red Blood Count 3.63 x10^6/uL (3.50-5.40) Hemoglobin 10.9 g/dL (12.0-15.5) L Hematocrit 33.0 % (36.0-47.0) L Mean Corpuscular Volume 91 fL (79-100) Mean Corpuscular Hemoglobin 30 pg (25-35) Mean Corpuscular Hemoglobin Concent 33 g/dL (31-37) Red Cell Distribution Width 13.4 % (11.5-14.5) Platelet Count 258 x10^3/uL (140-400) Neutrophils (%) (Auto) 71 % (31-73) Lymphocytes (%) (Auto) 19 % (24-48) L Monocytes (%) (Auto) 9 % (0-9) Eosinophils (%) (Auto) 2 % (0-3) Basophils (%) (Auto) 0 % (0-3) Neutrophils # (Auto) 5.5 x10^3/uL (1.8-7.7) Lymphocytes # (Auto) 1.5 x10^3/uL (1.0-4.8) Monocytes # (Auto) 0.7 x10^3/uL (0.0-1.1) Eosinophils # (Auto) 0.1 x10^3/uL (0.0-0.7) Basophils # (Auto) 0.0 x10^3/uL (0.0-0.2) Sodium Level 142 mmol/L (136-145) Potassium Level 3.5 mmol/L (3.5-5.1) Chloride Level 105 mmol/L (98-107) Carbon Dioxide Level 28 mmol/L (21-32) Anion Gap 9 (6-14) Blood Urea Nitrogen 6 mg/dL (7-20) L Creatinine 0.7 mg/dL (0.6-1.0) Estimated GFR (Cockcroft-Gault) 94.2 BUN/Creatinine Ratio 9 (6-20) Glucose Level 93 mg/dL (70-99) Calcium Level 7.5 mg/dL (8.5-10.1) L Total Bilirubin 0.6 mg/dL (0.2-1.0) Aspartate Amino Transferase (AST) 22 U/L (15-37) Alanine Aminotransferase (ALT) 25 U/L (14-59) Alkaline Phosphatase 60 U/L (46-116) Total Protein 5.3 g/dL (6.4-8.2) L Albumin 2.1 g/dL (3.4-5.0) L Albumin/Globulin Ratio 0.7 (1.0-1.7) L Laboratory Tests 11/16/19 04:31 Laboratory Tests 11/16/19 04:31 Laboratory Tests 11/16/19 04:31 Physical Exam: GENERAL: No apparent distress. Alert and oriented. HEENT: Head normocephalic, atraumatic. NECK: Supple LUNGS: Clear to auscultation. HEART: RRR, S1, S2 present, pulses intact ABDOMEN: Soft, positive bowel sounds. EXTREMITIES: No cyanosis or edema. NEUROLOGIC: Normal speech, normal tone PSYCHIATRIC: Normal affect, normal mood. SKIN: No ulceration. Assessment & Plan: A/P 39y G0 wit N/V/abd pain likely from Cholelithiasis 1.) Pelvic masses bilateral adnexal masses measuring 11 cm (on right) and 6.4 cm (on the left), h/o myomectomy in 2015. CA 125 nml. POD #2 s/p L/S RSO, benign appearance intraop. Awaiting path 2.) Cholelithiasis POD #2 s/p Lap Vikki 3.) Contraception none 4.) H/o open myomectomy 5.) Gastritis long standing hx 6.) Asthma 7.) Will cont follow AMENA HAHN MD Nov 16, 2019 11:21
[2019-11-16 15:00] VITALS: BP 125/83
--- NOTE | 2019-11-16 17:48 | PDOC ---
GENERAL General: Patient examined chart reviewed seen with girlfriend at bedside. She is in good spirits this evening tells me she is tolerating her diet. She is up and moving about the unit and tolerating that well. Appreciate subspecialty support. She is advancing diet hoping for discharge in the next day or 2. Problems: (1) S/P cholecystectomy (2) History of right salpingo-oophorectomy (3) Right ovarian cyst VITAL SIGNS Vital Signs/I&O: Vital Signs Date Time Temp Pulse Resp B/P (MAP) Pulse Ox O2 Delivery O2 Flow Rate FiO2 11/16/19 16:25 Room Air 11/16/19 15:00 98.6 103 22 125/83 (97) 97 98.6 I & O 11/15/19 11/15/19 11/16/19 15:00 23:00 07:00 Intake Total 2400 ml Output Total 750 ml Balance 1650 ml In general the patient is in good spirits this evening pleasant alert and oriented x3 no acute distress HEENT exam is unremarkable Chest is clear to auscultation Heart S1-S2 normal regular rate and rhythm no murmurs or gallops are noted Abdomen is obese dressings are dry and intact. She has minimal drainage from he r abdominal drain Extremity exam is unremarkable ALLERGIES Allergies: Allergies Coded Allergies Type Severity Reaction Last Updated Verified No Known Drug Allergies 07/31/14 No MEDS Medications: Current Medications Medications (Trade) Dose Ordered Sig/Leonel Start Time Stop Time Status Last Admin Dose Admin Acetaminophen/ Hydrocodone Bitart (Lortab 5/325) 1 tab PRN Q4HRS PRN 11/14/19 21:30 11/16/19 15:25 Bisacodyl (Dulcolax Supp) 10 mg STK-MED ONCE 11/14/19 16:09 11/14/19 16:09 DC 11/14/19 19:43 Bupivacaine HCl/ Epinephrine Bitart (Sensorcain-Epi 0.5%-1:273090 Mpf) 30 ml STK-MED ONCE 11/14/19 16:09 11/14/19 16:09 DC 11/14/19 19:43 Cellulose (Surgicel Hemostat 4x8) 1 each STK-MED ONCE 11/14/19 16:31 11/14/19 16:32 DC 8/21/20 19:43 Dexamethasone Sodium Phosphate (Decadron) 4 mg STK-MED ONCE 11/14/19 18:36 11/14/19 18:37 DC Dextrose (Dextrose 50%-Water Syringe) 12.5 gm PRN Q15MIN PRN 11/14/19 21:30 Docusate Sodium (Colace) 100 mg BID 11/15/19 09:00 11/16/19 07:51 Esmolol HCl (Brevibloc) 100 mg STK-MED ONCE 11/14/19 20:40 11/14/19 20:40 DC Fentanyl Citrate (Fentanyl 2ml Vial) 100 mcg STK-MED ONCE 11/14/19 21:46 11/14/19 21:46 DC Glycopyrrolate (Robinul) 1 mg STK-MED ONCE 11/14/19 20:24 11/14/19 20:24 DC Heparin Sodium (Porcine) 1000 unit/Sodium Chloride 1,001 ml @ 1,001 mls/hr 1X ONCE 11/14/19 17:00 11/14/19 17:59 DC 11/14/19 19:43 Hydromorphone HCl (Dilaudid) 0.5 mg PRN Q10MIN PRN 11/14/19 17:15 11/15/19 15:26 DC Ibuprofen (Motrin) 800 mg PRN Q6HRS PRN 11/15/19 15:30 Iohexol (Omnipaque 300 Mg/ml) 50 ml STK-MED ONCE 11/14/19 16:09 11/14/19 16:09 DC 11/14/19 19:43 Ketorolac Tromethamine (Toradol 30mg Vial) 30 mg STK-MED ONCE 11/14/19 20:23 11/14/19 20:24 DC Lidocaine HCl (Lidocaine Pf 2% Vial) 5 ml STK-MED ONCE 11/14/19 18:36 11/14/19 18:37 DC Lidocaine HCl (Xylocaine-Mpf 1% 2ml Vial) 2 ml PRN 1X PRN 11/14/19 17:15 11/14/19 21:30 DC Midazolam HCl (Versed) 2 mg STK-MED ONCE 11/14/19 18:37 11/14/19 18:37 DC Morphine Sulfate (Morphine Sulfate) 2 mg PRN Q2HR PRN 11/15/19 07:45 11/15/19 13:47 Naloxone HCl (Narcan) 0.4 mg PRN Q2MIN PRN 11/14/19 21:30 Neostigmine [place] (Neostigmine Methylsulfate) 5 mg STK-MED ONCE 11/14/19 20:24 11/14/19 20:24 DC Ondansetron HCl (Zofran) 4 mg PRN Q6HRS PRN 11/14/19 21:30 Oxycodone HCl (Roxicodone) 10 mg PRN Q4HRS PRN 11/15/19 15:30 11/16/19 11:58 Pantoprazole Sodium (PROTONIX VIAL for IV PUSH) 40 mg DAILYAC 11/13/19 13:30 11/16/19 07:51 Piperacillin Sod/ Tazobactam Sod 3.375 gm/Sodium Chloride 50 ml @ 100 mls/hr Q6HRS 11/13/19 09:30 11/16/19 11:59 Potassium Chloride (Klor-Con) 20 meq 1X ONCE 11/15/19 15:30 11/15/19 15:31 DC 11/15/19 17:41 Prochlorperazine Edisylate (Compazine) 5 mg PACU PRN PRN 11/14/19 17:15 11/15/19 15:26 DC Propofol (Diprivan) 200 mg STK-MED ONCE 11/14/19 18:36 11/14/19 18:37 DC Ringer's Solution 1,000 ml @ 100 mls/hr Q10H 11/14/19 21:30 11/16/19 11:59 Rocuronium [place] (Zemuron) 100 mg STK-MED ONCE 11/14/19 18:36 11/14/19 18:37 DC Sevoflurane (Ultane) 60 ml STK-MED ONCE 11/14/19 21:13 11/14/19 21:14 DC Sodium Chloride 1,000 ml @ 25 mls/hr Q24H 11/14/19 21:30 Sodium Chloride (Normal Saline Flush) 3 ml QSHIFT PRN 11/14/19 21:30 Succinylcholine Chloride (Anectine) 200 mg STK-MED ONCE 11/14/19 18:45 11/14/19 18:46 DC LAB Lab: Laboratory Tests Test 11/16/19 04:31 White Blood Count 7.8 x10^3/uL (4.0-11.0) Red Blood Count 3.63 x10^6/uL (3.50-5.40) Hemoglobin 10.9 g/dL (12.0-15.5) L Hematocrit 33.0 % (36.0-47.0) L Mean Corpuscular Volume 91 fL (79-100) Mean Corpuscular Hemoglobin 30 pg (25-35) Mean Corpuscular Hemoglobin Concent 33 g/dL (31-37) Red Cell Distribution Width 13.4 % (11.5-14.5) Platelet Count 258 x10^3/uL (140-400) Neutrophils (%) (Auto) 71 % (31-73) Lymphocytes (%) (Auto) 19 % (24-48) L Monocytes (%) (Auto) 9 % (0-9) Eosinophils (%) (Auto) 2 % (0-3) Basophils (%) (Auto) 0 % (0-3) Neutrophils # (Auto) 5.5 x10^3/uL (1.8-7.7) Lymphocytes # (Auto) 1.5 x10^3/uL (1.0-4.8) Monocytes # (Auto) 0.7 x10^3/uL (0.0-1.1) Eosinophils # (Auto) 0.1 x10^3/uL (0.0-0.7) Basophils # (Auto) 0.0 x10^3/uL (0.0-0.2) Sodium Level 142 mmol/L (136-145) Potassium Level 3.5 mmol/L (3.5-5.1) Chloride Level 105 mmol/L (98-107) Carbon Dioxide Level 28 mmol/L (21-32) Anion Gap 9 (6-14) Blood Urea Nitrogen 6 mg/dL (7-20) L Creatinine 0.7 mg/dL (0.6-1.0) Estimated GFR (Cockcroft-Gault) 94.2 BUN/Creatinine Ratio 9 (6-20) Glucose Level 93 mg/dL (70-99) Calcium Level 7.5 mg/dL (8.5-10.1) L Total Bilirubin 0.6 mg/dL (0.2-1.0) Aspartate Amino Transferase (AST) 22 U/L (15-37) Alanine Aminotransferase (ALT) 25 U/L (14-59) Alkaline Phosphatase 60 U/L (46-116) Total Protein 5.3 g/dL (6.4-8.2) L Albumin 2.1 g/dL (3.4-5.0) L Albumin/Globulin Ratio 0.7 (1.0-1.7) L Laboratory Tests 11/16/19 04:31 Laboratory Tests 11/16/19 04:31 ASSESSMENT & PLAN A&P Plan as noted above This note was created using [employer] and may have omissions and/or errors due to the nature of real-time voice tax staff accountant. Justicifation of Admission Dx: Justifications for Admission: Justification of Admission Dx: Yes ALEX [email or web address] MD Nov 16, 2019 17:48
[2019-11-16 19:00] VITALS: BP 122/77
[2019-11-16] MEDS: IV NORMAL SALINE 1000ML BAG 1,000 ML IV SCH (21:30)
[2019-11-16 23:00] VITALS: BP 144/82
[2019-11-17] MEDS: PIPERACILLIN/TAZOBACTAM 3.375 GM in IV NORMAL SALINE 50ML 50 ML IV SCH ×3 (00:02→11:42)
[2019-11-17] MEDS: IV RINGERS,LACTATED 1000ML 1,000 ML IV SCH ×2 (00:05→09:30)
[2019-11-17 01:00] VITALS: BP 144/82
[2019-11-17 02:00] VITALS: BP 144/82
[2019-11-17 03:00] VITALS: BP 129/86
[2019-11-17] MEDS: oxyCODONE IR 5 MG TABLET PO PRN (04:34)
[2019-11-17 07:00] VITALS: BP 140/82
[2019-11-17] MEDS: PANTOPRAZOLE IV PUSH 40 MG VIAL. IVP SCH (07:58)
[2019-11-17] MEDS: DOCUSATE SODIUM 100 MG CAPSULE. PO SCH (07:58)
[2019-11-17 08:43] LABS: BASO % 0 % (0-3); EOS # 0.2 x10^3/uL (0.0-0.7); EOS % 4 % (0-3); HEMATOCRIT 33.1 % (36.0-47.0); HEMOGLOBIN 11.2 g/dL (12.0-15.5); LYMPH # 0.8 x10^3/uL (1.0-4.8); LYMPH % 12 % (24-48); MEAN CORPUSCULAR HEMOGLOBIN 31 pg (25-35); MEAN CORPUSCULAR HGB CONC 34 g/dL (31-37); MEAN CORPUSCULAR VOLUME 91 fL (79-100); MONO # 0.4 x10^3/uL (0.0-1.1); MONO % 7 % (0-9); NEUT # 5.1 x10^3/uL (1.8-7.7); NEUT % 78 % (31-73); PLATELET COUNT 307 x10^3/uL (140-400); RED BLOOD COUNT 3.63 x10^6/uL (3.50-5.40); RED CELL DISTRIBUTION WIDTH 13.4 % (11.5-14.5); WHITE BLOOD COUNT 6.6 x10^3/uL (4.0-11.0)
[2019-11-17 09:06] LABS: ALBUMIN 2.2 g/dL (3.4-5.0); ALBUMIN/GLOBULIN RATIO 0.5 (1.0-1.7); CALCIUM 7.9 mg/dL (8.5-10.1); CREATININE 0.8 mg/dL (0.6-1.0); GFR 80.7; POTASSIUM 3.2 mmol/L (3.5-5.1); TOTAL BILIRUBIN 0.5 mg/dL (0.2-1.0); TOTAL PROTEIN 6.3 g/dL (6.4-8.2)
--- NOTE | 2019-11-17 09:28 | PDOC ---
[employer] PROGRESS NOTE Date of Service: DATE: 11/17/19 TIME: 09:27 Subjective: Pt doing well Objective: Vital Signs: Vital Signs Date Time Temp Pulse Resp B/P (MAP) Pulse Ox O2 Delivery O2 Flow Rate FiO2 11/16/19 07:00 98.6 107 14 123/82 (96) 93 Room Air 98.6 Vital Signs Date Time Temp Pulse Resp B/P (MAP) Pulse Ox O2 Delivery O2 Flow Rate FiO2 11/17/19 07:00 98.5 102 18 140/82 (101) 96 Room Air 98.5 Labs: Laboratory Tests Test 11/17/19 08:15 White Blood Count 6.6 x10^3/uL (4.0-11.0) Red Blood Count 3.63 x10^6/uL (3.50-5.40) Hemoglobin 11.2 g/dL (12.0-15.5) L Hematocrit 33.1 % (36.0-47.0) L Mean Corpuscular Volume 91 fL (79-100) Mean Corpuscular Hemoglobin 31 pg (25-35) Mean Corpuscular Hemoglobin Concent 34 g/dL (31-37) Red Cell Distribution Width 13.4 % (11.5-14.5) Platelet Count 307 x10^3/uL (140-400) Neutrophils (%) (Auto) 78 % (31-73) H Lymphocytes (%) (Auto) 12 % (24-48) L Monocytes (%) (Auto) 7 % (0-9) Eosinophils (%) (Auto) 4 % (0-3) H Basophils (%) (Auto) 0 % (0-3) Neutrophils # (Auto) 5.1 x10^3/uL (1.8-7.7) Lymphocytes # (Auto) 0.8 x10^3/uL (1.0-4.8) L Monocytes # (Auto) 0.4 x10^3/uL (0.0-1.1) Eosinophils # (Auto) 0.2 x10^3/uL (0.0-0.7) Basophils # (Auto) 0.0 x10^3/uL (0.0-0.2) Sodium Level 140 mmol/L (136-145) Potassium Level 3.2 mmol/L (3.5-5.1) L Chloride Level 103 mmol/L (98-107) Carbon Dioxide Level 27 mmol/L (21-32) Anion Gap 10 (6-14) Blood Urea Nitrogen 3 mg/dL (7-20) L Creatinine 0.8 mg/dL (0.6-1.0) Estimated GFR (Cockcroft-Gault) 80.7 BUN/Creatinine Ratio 4 (6-20) L Glucose Level 95 mg/dL (70-99) Calcium Level 7.9 mg/dL (8.5-10.1) L Total Bilirubin 0.5 mg/dL (0.2-1.0) Aspartate Amino Transferase (AST) 13 U/L (15-37) L Alanine Aminotransferase (ALT) 21 U/L (14-59) Alkaline Phosphatase 68 U/L (46-116) Total Protein 6.3 g/dL (6.4-8.2) L Albumin 2.2 g/dL (3.4-5.0) L Albumin/Globulin Ratio 0.5 (1.0-1.7) L Laboratory Tests 11/17/19 08:15 Laboratory Tests 11/17/19 08:15 Laboratory Tests 11/17/19 08:15 Physical Exam: GENERAL: No apparent distress. Alert and oriented. HEENT: Head normocephalic, atraumatic. NECK: Supple LUNGS: Clear to auscultation. HEART: RRR, S1, S2 present, pulses intact ABDOMEN: Soft, positive bowel sounds. EXTREMITIES: No cyanosis or edema. NEUROLOGIC: Normal speech, normal tone PSYCHIATRIC: Normal affect, normal mood. SKIN: No ulceration. Assessment & Plan: A/P 39y G0 wit N/V/abd pain likely from Cholelithiasis 1.) Pelvic masses bilateral adnexal masses measuring 11 cm (on right) and 6.4 cm (on the left), h/o myomectomy in 2015. CA 125 nml. POD #3 s/p L/S RSO, benign appearance intraop. Does not appear the cyst fluid was sent for cytology (sent as micro specimen), asked lab to see if enough fluid left for cytology, otto meek too degraded to get any results, Awaiting path of cyst/ovary 2.) Cholelithiasis POD #3 s/p Lap Vikki, drain/abx, managed per surgery 3.) Contraception none 4.) H/o open myomectomy 5.) Gastritis long standing hx 6.) Asthma 7.) Will cont follow AMENA HAHN MD Nov 17, 2019 09:28
--- NOTE | 2019-11-17 10:10 | PDOC ---
Date of Service: DATE: 11/17/19 TIME: 10:07 Subjective: Subjective: Feels much better. Eating and stooling w/o issue. Objective: Objective: Dr. Torrez/students present - wondering about possible DC. Vital Signs: Vital Signs Date Time Temp Pulse Resp B/P (MAP) Pulse Ox O2 Delivery O2 Flow Rate FiO2 11/17/19 07:00 98.5 102 18 140/82 (101) 96 Room Air 98.5 Labs: Laboratory Tests Test 11/17/19 08:15 White Blood Count 6.6 x10^3/uL Red Blood Count 3.63 x10^6/uL Hemoglobin 11.2 g/dL Hematocrit 33.1 % Mean Corpuscular Volume 91 fL Mean Corpuscular Hemoglobin 31 pg Mean Corpuscular Hemoglobin Concent 34 g/dL Red Cell Distribution Width 13.4 % Platelet Count 307 x10^3/uL Neutrophils (%) (Auto) 78 % Lymphocytes (%) (Auto) 12 % Monocytes (%) (Auto) 7 % Eosinophils (%) (Auto) 4 % Basophils (%) (Auto) 0 % Neutrophils # (Auto) 5.1 x10^3/uL Lymphocytes # (Auto) 0.8 x10^3/uL Monocytes # (Auto) 0.4 x10^3/uL Eosinophils # (Auto) 0.2 x10^3/uL Basophils # (Auto) 0.0 x10^3/uL Sodium Level 140 mmol/L Potassium Level 3.2 mmol/L Chloride Level 103 mmol/L Carbon Dioxide Level 27 mmol/L Anion Gap 10 Blood Urea Nitrogen 3 mg/dL Creatinine 0.8 mg/dL Estimated GFR (Cockcroft-Gault) 80.7 BUN/Creatinine Ratio 4 Glucose Level 95 mg/dL Calcium Level 7.9 mg/dL Total Bilirubin 0.5 mg/dL Aspartate Amino Transf (AST/SGOT) 13 U/L Alanine Aminotransferase (ALT/SGPT) 21 U/L Alkaline Phosphatase 68 U/L Total Protein 6.3 g/dL Albumin 2.2 g/dL Albumin/Globulin Ratio 0.5 ORDERED: AEROBIC CULT GS COMMENTS: OVARY CYST FLUID ---- -------- Procedure Result GRAM STAIN Final Final NO ORGANISMS SEEN. SQUAMOUS EPI CELL:NOT APPLICABLE PMN (WBCs):NONE SEEN Unless otherwise specified, Testing Performed by: [address] [address] For Inquires, the Physician may contact the Microbiology department at [phone] AEROBIC CULTURE Preliminary Preliminary No Growth on 11/16/19 at 0994 Imaging: A/P/Transvag US 11/13 IMPRESSION: 1. 11.5 cm purely cystic right adnexal mass, likely of ovarian origin. Follow-up to resolution is recommended to exclude a lesion of low malignant potential. 2. A 4.5 cm solid lesion in the left adnexa is likely of ovarian origin. Considerations include a densely hemorrhagic cyst, versus a soft tissue mass. MRI with and without contrast could further characterize versus ongoing follow- up. Gynecologic consultation is suggested. [facility] 11/13 IMPRESSION: 1. No clear evidence of retained stones. PE: GEN: NAD LUNGS: CTAB HEART: RRR ABD: soft, drain thin reddish NEURO/PSYCH: A & O 3 A/P: Calculous cholecystitis and bilateral ovarian cysts S/p cholecystectomy and RSO -- PO PPI since eating regular diet. DC per surgery and OB. Follow-up w/ GI PRN. Justicifation of Admission Dx: Justifications for Admission: Justification of Admission Dx: Yes ZAIRA MCKEON Nov 17, 2019 10:10
--- NOTE | 2019-11-17 10:26 | NUR ---
SW following. Discussed with RN, pt on room air, regular diet, IV abx, CEDRIC drain. Possible discharge home today if IV abx are not needed. SW will continue to follow.
[2019-11-17 11:00] VITALS: BP 138/90
--- NOTE | 2019-11-17 11:57 | PDOC ---
[employer] PROGRESS NOTE Date of Service DOS: DATE: 11/17/19 TIME: 11:55 Chief Complaint Chief Complaint Postop day 2 laparoscopic/open cholecystectomy and who oophorectomy History of Present Illness History of Present Illness 11/17/2019 Patient seen and examined She seems to be at her baseline Tolerating food ate a cheeseburger last night Wounds are clean dry and intact Discussed with nurse practitioner for gastroenterology Chart reviewed Suspect we can discharge this afternoon I left 2 prescriptions 1 for hydrocodone and one for Augmentin Vitals/I&O Vitals/I&O: Vital Signs Date Time Temp Pulse Resp B/P (MAP) Pulse Ox O2 Delivery O2 Flow Rate FiO2 11/17/19 11:00 98.3 89 18 138/90 (106) 96 Room Air 98.3 I & O 11/16/19 11/16/19 11/17/19 15:00 23:00 07:00 Intake Total 480 ml 2400 ml Output Total 430 ml Balance 50 ml 2400 ml Physical Exam General: Alert, Oriented X3, Cooperative Heart: Regular rate, Normal S1, Normal S2, No murmurs Abdomen: Soft, Other (ND, drain serosang ) Extremities: No clubbing, No cyanosis, No edema, Normal pulses, No tenderness/swelling Skin: No rashes, No breakdown, No significant lesion Labs Labs: Laboratory Tests Test 11/17/19 08:15 White Blood Count 6.6 x10^3/uL (4.0-11.0) Red Blood Count 3.63 x10^6/uL (3.50-5.40) Hemoglobin 11.2 g/dL (12.0-15.5) Hematocrit 33.1 % (36.0-47.0) Mean Corpuscular Volume 91 fL (79-100) Mean Corpuscular Hemoglobin 31 pg (25-35) Mean Corpuscular Hemoglobin Concent 34 g/dL (31-37) Red Cell Distribution Width 13.4 % (11.5-14.5) Platelet Count 307 x10^3/uL (140-400) Neutrophils (%) (Auto) 78 % (31-73) Lymphocytes (%) (Auto) 12 % (24-48) Monocytes (%) (Auto) 7 % (0-9) Eosinophils (%) (Auto) 4 % (0-3) Basophils (%) (Auto) 0 % (0-3) Neutrophils # (Auto) 5.1 x10^3/uL (1.8-7.7) Lymphocytes # (Auto) 0.8 x10^3/uL (1.0-4.8) Monocytes # (Auto) 0.4 x10^3/uL (0.0-1.1) Eosinophils # (Auto) 0.2 x10^3/uL (0.0-0.7) Basophils # (Auto) 0.0 x10^3/uL (0.0-0.2) Sodium Level 140 mmol/L (136-145) Potassium Level 3.2 mmol/L (3.5-5.1) Chloride Level 103 mmol/L (98-107) Carbon Dioxide Level 27 mmol/L (21-32) Anion Gap 10 (6-14) Blood Urea Nitrogen 3 mg/dL (7-20) Creatinine 0.8 mg/dL (0.6-1.0) Estimated GFR (Cockcroft-Gault) 80.7 BUN/Creatinine Ratio 4 (6-20) Glucose Level 95 mg/dL (70-99) Calcium Level 7.9 mg/dL (8.5-10.1) Total Bilirubin 0.5 mg/dL (0.2-1.0) Aspartate Amino Transf (AST/SGOT) 13 U/L (15-37) Alanine Aminotransferase (ALT/SGPT) 21 U/L (14-59) Alkaline Phosphatase 68 U/L (46-116) Total Protein 6.3 g/dL (6.4-8.2) Albumin 2.2 g/dL (3.4-5.0) Albumin/Globulin Ratio 0.5 (1.0-1.7) Assessment and Plan Assessmemt and Plan Problems Medical Problems: (1) Fibroid uterus Status: Postop day 2 lap tristin/oophorectomy Discharge Comment Review of Relevant I have reviewed the following items vijaya (where applicable) has been applied. GEORGE THOMAS III DO Nov 17, 2019 11:57
[2019-11-17] MEDS ORDERED: HYDR-2761 PO (13:57)
--- NOTE | 2019-11-17 15:07 | DS ---
DATE OF DISCHARGE: 11/17/2019 ADMISSION DIAGNOSIS: Cholecystitis. DISCHARGE DIAGNOSES: Postoperative day #2, laparoscopic/open cholecystectomy and oophorectomy. CONSULTS: Dr. Marina and Dr. Abdoulaye Maria. PROCEDURES: 1. Left salpingo and right salpingo-oophorectomy. 2. Laparoscopic cholecystectomy. HOSPITAL COURSE: The patient is a pleasant middle-aged female who presented with abdominal pain, was noted to have cholecystitis. She was admitted. We consulted General Surgery. She went for laparoscopic cholecystectomy. They did have to open her up and we consulted Dr. Maria as well because she needed to have the ovary and fallopian tube removed. Basically, she is postop day #2 today. I saw her and examined her, she is at her baseline. Heart tones are normal. Lungs are clear. Her wounds are clean. She wants to go home. We plan to discharge with close outpatient followup. DISPOSITION: Home. ACTIVITY: As tolerated. DIET: Low sodium. MEDICATIONS: Please see the MRAD. TOTAL TIME: 32 minutes. GEORGE THOMAS DO DR: SHIRA/emil JOB#: [id number] / [id number]
[2019-11-18] MEDS ORDERED: PANTOPRAZOLE 40 MG TABLET.DR. PO SCH (07:30)
--- NOTE | 2019-11-19 16:08 | PATHOLOGY ---
[facility] Accession Number: [id number] . 01 Material submitted: . PART A: gallbladder - GALLBLADDER PART B: ovary - RIGHT TUBE AND OVARY. Modifiers: right . 01 Clinical history: . CHOLECYSTITIS . 02 Diagnosis: A. Gallbladder, excision: - Acute hemorrhagic cholecystitis; negative for malignancy. - Lithiasis. . B. Ovary "right" oophorectomy: - Mucinous cystadenoma; negative for malignancy. - Please see comment. . Fallopian tube "right", salpingectomy: - No significant pathologic alteration. . (FADY:geri; 11/19/2019) [facility] 11/19/2019 1511 Local . 02 Comment: The case is seen in co-review with Dr. Dany Bazan who concurs with the above diagnosis. (FADY:geri; 11/19/2019) . 02 Electronically signed: . Meng Jacinto MD, Pathologist NPI- [id number] . 01 Gross description: . A. The specimen is received in formalin labeled "Marcin Humphrey, gallbladder" and consists of an intact, edwards-le, ragged gallbladder with adhesions measuring 11.6 x 4.5 x 4.2 cm. The margin is inked black. Opening reveals a lumen filled with hemorrhagic material, clear fluid, and a single granular to mulberry yellow-green calculus measuring 4.0 cm. The mucosa is necrotic, brown-black to pink red, and sloughing away with an average wall thickness of 0.5 cm. No masses are identified. [employer] D[employer] In[employer] sections are submitted in A1-A3. . B. The specimen is received in formalin, labeled "Marcin Humphrey, R tube and R ovary" and consists of a 64 g deflated cystic ovary with a loosely attached fimbriated fallopian tube segment. The ovary measures 9.8 x 4.9 x 3.0 cm and the fallopian tube measures 5.1 cm in length and up to 0.6 cm in diameter. A fallopian tube is purple edwards smooth shiny revealing a central lumen and no gross lesions. The ovary external surface is pink-edwards with extensive brown specks covering approximately 50% of the surface. Opening reveals a purple-edwards smooth cyst lining with a wall ranging from 0.1-0.6 cm. There is a cluster of multiple cystic structures measuring 5.6 x 3.5 cm. the cysts contain gelatinous mucoid material. [employer] Diving Instructor sections are submitted in B1-B9. (SDY; 11/17/2019) SYU/SYU 11/17/2019 1602 Local . 02 Pathologist provided ICD-10: K80.00, D27.0 . 02 CPT . 655375, [id number] Specimen Comment: A courtesy copy of this report has been sent to [phone], [phone] Specimen Comment: [id number] Specimen Comment: Report sent to / DR HAHN Performed at: 01 [facility] [address], [place] [id number] MD Kris Gautam MD Phone: [phone] Performed at: 02 [facility] [address] [place], [place] [id number] MD Rui Arenas MD Phone: [phone]
== END 2019-11-17 14:20 | disposition home or self-care (01) | DRG 418 ==
LOC: 4 NORTH 02:20
PROVIDERS: ADMIT Family Medicine; ATTEND Family Medicine
PROC: 0UT04ZZ Resection of Right Ovary, Percutaneous Endoscopic Approach (ICD-10-PCS; 2019-11-14)
PROC: BF101ZZ Fluoroscopy of Bile Ducts using Low Osmolar Contrast (ICD-10-PCS; 2019-11-14)
PROC: 0FT44ZZ Resection of Gallbladder, Percutaneous Endoscopic Approach (ICD-10-PCS; principal; 2019-11-14 17:30)
PROC: 0UT54ZZ Resection of Right Fallopian Tube, Percutaneous Endoscopic Approach (ICD-10-PCS; 2019-11-14 17:30)
DX: K80.11 Calculus of gallbladder with chronic cholecystitis with obstruction (principal); Z68.41 Body mass index [BMI] 40.0-44.9, adult; D25.9 Leiomyoma of uterus, unspecified; E66.01 Morbid (severe) obesity due to excess calories; F17.210 Nicotine dependence, cigarettes, uncomplicated; J45.909 Unspecified asthma, uncomplicated; K21.9 Gastro-esophageal reflux disease without esophagitis; Z20.828 Contact with and (suspected) exposure to other viral communicable diseases; N83.202 Unspecified ovarian cyst, left side; N83.201 Unspecified ovarian cyst, right side; Z80.0 Family history of malignant neoplasm of digestive organs; Z80.3 Family history of malignant neoplasm of breast; Z80.7 Family history of other malignant neoplasms of lymphoid, hematopoietic and related tissues; Z82.49 Family history of ischemic heart disease and other diseases of the circulatory system; Z83.3 Family history of diabetes mellitus; Z90.721 Acquired absence of ovaries, unilateral; Z79.899 Other long term (current) drug therapy
CPT/HCPCS: 36415; 74300; 76856; 80048; 80053; 80076; 81025; 85007; 85025; 86304; 87070; 87426; 88304; 88305; A7015; C9113; J0330; J0780; J1100; J1885; J2250; J2270; J2405; J2543; J2704; J2710; J3010; J3490; J7030; J7120; Q9967; G0378; U0003-CS